=== PATIENT | male | born 1970 | race Caucasian/White ===

== ENCOUNTER 2023-07-05 01:12 | Emergency (ER) | payer BC, SELFPAY ==
[2023-07-05] VITALS (25 sets, daily range): BP systolic 108–148; BP diastolic 56–90; PULSE 48–70; RESP 12–23; TEMP 37; O2SAT 98–100
--- NOTE | ~2023-07-05 | XR_ITS ---
Clinical Indication: Chest pain PA and lateral views of the chest: Comparison: 11/07/2004 Findings: The lungs are clear, without evidence of focal consolidation or pleural effusion. Cardiome diastinal silhouette is within normal limits. Bones and soft tissues are unremarkable. Impression: Normal chest. Reviewed, dictated and finalized at location . Impression: Normal chest.
--- NOTE | ~2023-07-05 | CT_ITS ---
CT of the Abdomen and Pelvis: Indication: Abdominal pain Technique: 2.5 mm axial scans were obtained through the abdomen and pelvis following intravenous adm inistration of 100 cc of Omnipaque 350. Dose reduction technique was used on this scan by utilizing a utomated exposure control and iterative reconstruction technique. The dose-length product (DLP) was 6 80.34 mGy-cm. Findings: Scans through the lung bases are unremarkable. The liver, spleen, pancreas, gallbladder, adrenals and kidneys are within normal limits. No evidence of aortic aneurysm. No lymphadenopathy. No bowel obstruction or bowel wall thickening. There is no evidence to suggest acute appendicitis. Images through the pelvis were performed. Urinary bladder unremarkable. Prostate gland and seminal ve sicles are unremarkable. No ascites. Impression: No significant abnormalities seen. Reviewed, dictated and finalized at [facility]. Impression: No significant abnormalities seen.
--- NOTE | ~2023-07-05 | US_ITS ---
US abdomen limited INDICATION: Right upper quadrant pain PROCEDURE: Realtime right upper abdominal ultrasound. COMPARISON: No prior studies for comparison. FINDINGS: The pancreas is normal without focal mass or pancreatic ductal dilation. Liver echotexture is normal without focal mass or intrahepatic biliary dilatation. There is normal directional flow i n the portal vein. The gallbladder is normal without stones, gallbladder wall thickening or pericholecystic fluid. Comm on bile duct is not definitely visualized. No significant biliary dilatation is identified. No sonogr aphic Samuels's sign. IMPRESSION: 1: Normal limited abdominal ultrasound. Reviewed, dictated and finalized at location B.
--- NOTE | 2023-07-05 01:14 | ECG_ITS ---
Measurements Intervals [place] Rate: 59 P: 55 TX: 174 QRS: 91 QRSD: 94 T: 66 QT: 407 QTc: 404 Interpretive Statements SINUS BRADYCARDIA RIGHT AXIS DEVIATION BASELINE ARTIFACT- I, II, III, AVR, AVL, AVF, V1-V6 BORDERLINE ECG NO PREVIOUS ECG AVAILABLE FOR COMPARISON Electronically Signed On 07-05-2023 6:31:52 CDT by Norris Connor D.O.
[2023-07-05 02:07] LABS: Basophils Percent Auto 0.4 % (0.2-1.2); Eosinophils Absolute Auto 0.4 K/mm3 (0-0.3); Eosinophils Percent Auto 4.9 % (0-4.4); Hematocrit 45.2 % (42.0-52.0); Hemoglobin 15.2 g/dL (14.0-18.0); Immature Granulocyte Absolute 0.02 K/mm3 (0.00-0.031); Immature Granulocyte Percent A 0.3 % (0-0.5); Lymphocytes Absolute Auto 3.08 K/mm3 (0.9-3.2); Lymphocytes Percent Auto 39.4 % (18.3-44.2); Mean Corpuscular HGB Conc 33.6 g/dl (32-36); Mean Corpuscular Hemoglobin 30.5 pg (26-34); Mean Corpuscular Volume 90.6 fl (80-100); Mean Platelet Volume 9.5 fl (7.4-10.4); Monocytes Absolute Auto 0.5 K/mm3 (0.1-0.6); Monocytes Percent Auto 6.7 % (2.6-8.5); Neutrophils Absolute Auto 3.8 K/mm3 (1.3-6.7); Neutrophils Percent Auto 48.3 % (45.5-73.1); Platelet Count Result 181 k/mm3 (150-375); Red Blood Count 4.99 M/mm3 (4.6-6.20); Red Cell Distribution Width 12.1 % (11.5-14.5); White Blood Count 7.8 K/mm3 (4.5-10.0)
[2023-07-05 02:18] LABS: Alanine Aminotransferase 23 U/L (6-50); Albumin Level 4.2 g/dL (3.5-5.1); Alkaline Phosphatase 57 U/L (38-126); Anion Gap 10 mmol/L (8-16); Aspartate Amino Transferase 30 U/L (17-59); Bilirubin,Total 0.5 mg/dL (0.2-1.3); Blood Urea Nitrogen 16 mg/dL (9-20); Calcium 8.7 mg/dL (8.4-10.2); Carbon Dioxide 26 mmol/L (22-30); Chloride 105 mmol/L (98-107); Estimated CRCL calculation 82 ml/min; Estimated Glomerular Filt Rate > 60; Glucose 120 mg/dL (65-110); Lipase 185 U/L (23-300); Potassium 3.6 mmol/L (3.4-5.0); Sodium 141 mmol/L (137-145)
[2023-07-05 02:22] LABS: INR 0.9
[2023-07-05 02:23] LABS: Partial Thromboplastin Time 24.7 SECONDS (22.3-36.8)
[2023-07-05 02:30] LABS: Troponin I < 0.012 ng/mL (0.000-0.034)
[2023-07-05 06:15] LABS: Troponin I 0.014 ng/mL (0.000-0.034)
--- NOTE | 2023-07-05 07:24 | ED.CHESTPAIN ---
HPI - Chest Pain General Chief Complaint: Chest Pain Stated Complaint: chest pain Time Seen by Provider: 07/05/23 06:54 History of Present Illness HPI narrative: 53-year-old male presented the ED for evaluation of right upper quadrant and right-sided chest pain. Patient reports that the symptoms began to worsen around midnight last night. Patient reports he has had [place] food for lunch, yesterday and chicken nuggets for dinner. Patient does feel he has abdominal pain everywhere but worse in the right upper quadrant. Patient reports he did have similar symptoms when he was on a cruise but the symptoms resolved. Patient denies any prior history of gallbladder disease. Patient denies any prior history of abdominal surgeries. Related Data Allergies Allergy/AdvReac Type Severity Reaction Status Date / Time No Known Allergies Allergy Verified 07/05/23 05:47 Review of Systems Review of Systems: All systems reviewed & are unremarkable except as noted in HPI and below Exam Narrative: APPEARANCE: Well appearing, no pain, no distress, well-nourished. HEAD: normocephalic, atraumatic. EYES: PERRLA/EOMI, conjunctivae clear. THROAT: Pharynx clear, no exudate. NECK: Supple. No adenopathy, no masses. RESPIRATORY: Airway patent, respirations nonlabored. Clear to auscultation bilaterally, no rales, rhonchi, wheezing. CARDIOVASCULAR: Regular rate and rhythm without murmurs rubs or gallops. ABDOMINAL: Soft, right upper quadrant and right lower quadrant tenderness to MUSCULOSKELETAL: Moves all extremities. Strength/ROM intact, No edema, No calf tenderness. NEURO: Alert. Cranial nerves II through XII intact. Grossly intact SKIN: Warm, dry. Normal Color Course Course Emergency Course: 53-year-old female presented the ED for evaluation of right upper quadrant pain. Patient is afebrile with leukocytosis and a stable hemoglobin. Patient has no significant abnormalities on his CMP and had negative serial troponins. X-ray showed no acute cardiopulmonary malady. Patient does have reproducible tenderness to his upper quadrant and lower abdomen. Patient has been provided medications for pain control and a CT scan to evaluate for abdominal pathology has been ordered. Patient was treated with 1 L of IV fluids and 1 mg of IV Dilaudid. Patient did feel improved with treatment. CT scan was ordered to evaluate for intra-abdominal pathology and CT scan showed no acute abnormalities. Ultrasound of the right upper quadrant was ordered to evaluate for cholelithiasis and this was negative. Patient and family were updated on the results of the work-up and recommendation for a low-fat diet and follow-up with surgery and primary care physician. They are also encouraged to return the emergency department with any worsening symptoms. All questions and concerns were addressed and they are comfortable with the plan for discharge and close follow-up. Vital Signs Vital signs: Vital Signs Temperature 98.6 F 07/05/23 01:27 Pulse Rate 57 L 07/05/23 01:27 Respiratory Rate 22 H 07/05/23 01:27 Blood Pressure 143/87 H 07/05/23 01:27 Pulse Oximetry 100 07/05/23 01:27 Oxygen Delivery Room Air 07/05/23 01:27 Temperature 98.6 F 07/05/23 01:27 Pulse Rate 70 07/05/23 09:30 Respiratory Rate 23 H 07/05/23 08:47 Blood Pressure 108/56 L 07/05/23 09:01 Pulse Oximetry 100 07/05/23 09:15 Oxygen Delivery Room Air 07/05/23 05:43 MDM - Chest Pain Differential Diagnosis Differential diagnosis: Likely pneumothorax, stable angina, atypical chest pain, chest pain and biliary colic Lab Data Attestation: I reviewed the patient's lab results. 07/05/23 01:26 07/05/23 01:26 Labs: Lab Results 07/05/23 07/05/23 Range/Units 01:26 05:49 WBC 7.8 (4.5-10.0) K/mm3 RBC 4.99 (4.6-6.20) M/mm3 Hgb 15.2 (14.0-18.0) g/dL Hct 45.2 (42.0-52.0) % MCV 90.6 (80-100) fl MCH 30.5 (26-34) pg MCHC
[2023-07-05] MEDS: HYDROmorphone HCL INJ (*CRX) 1 MG/ML SYR IV PUSH (07:31)
[2023-07-05] MEDS: SODIUM CHLORIDE 0.9% IV 1,000 ML 999 ML IV CONT (07:32)
== END 2023-07-05 09:43 | disposition home or self-care (01) ==
PROVIDERS: Emergency Medicine; Emergency Provider Emergency Medicine; PCP Physician Assistant
DX: R10.11 Right upper quadrant pain (principal); R00.1 Bradycardia, unspecified
CPT/HCPCS: 36415; 71046; 74177; 76705; 80053; 83690; 84484; 85025; 85610; 85730; 93005; 96361; 96374; 99284; J1170; J7030; Q9967

== ENCOUNTER 2024-01-22 18:04 | Inpatient (IN) | payer BC, SELFPAY ==
--- NOTE | ~2024-01-22 | US_ITS ---
EXAMINATION: US right upper quadrant DATE: 01/22/2024 19:39 INDICATION: Abnormal liver function tests. TECHNIQUE: Multiple grayscale and Doppler ultrasound images of the abdomen were obtained. COMPARISON: Abdomen ultrasound 07/05/2023, CT abdomen and pelvis 07/05/2023 FINDINGS: The visualized portion of the body of the pancreas is normal. The liver is normal without f ocal lesion. There is normal flow in main portal vein. The gallbladder is normal in size. No gallston es or gallbladder wall thickening. There is no sonographic Samuels sign. The common duct is normal and measures 5 mm. Right kidney is normal. IMPRESSION: 1. Normal right upper quadrant ultrasound. Reviewed, dictated and finalized at location A.
--- NOTE | ~2024-01-22 | XR_ITS ---
EXAMINATION: XR ERCP DATE: 01/24/2024 12:45 CDT INDICATION: ERCP . TECHNIQUE: 5 fluoroscopic images of the right upper quadrant were obtained during ERCP, performed in the fluoroscopy suite. I was not present during the procedure. Fluoroscopy exposure time was 281.4 se conds. Air Kerma 116.08 mGy. DAP 3.57 mGym2. COMPARISON: CT abdomen pelvis 01/22/2024 FINDINGS/IMPRESSION: Fluoroscopic documentation of ERCP. Please refer to the operative note for complete procedural detail s. Reviewed, dictated and finalized at location K.
--- NOTE | ~2024-01-22 | CT_ITS ---
EXAMINATION: CT abdomen pelvis w con DATE: 01/22/2024 20:59 INDICATION: Right abdominal pain. TECHNIQUE: Computed tomography (CT) of the abdomen and pelvis was performed with 100 mL Omnipaque 350 intravenous contrast. Automated exposure control and iterative reconstruction technique were employe d. The dose-length product was 526.93 mGy-cm. COMPARISON: CT abdomen and pelvis 07/05/2023 FINDINGS: The visualized portions of the lung bases demonstrate mild atelectasis. No pleural effusion . The heart size is normal. No pericardial effusion. There is a small sliding hiatal hernia. There is mild intrahepatic biliary duct dilatation. The gallbladder is normal in size. There is a 4 mm stone in the common bile duct. The common duct is mildly dilated and measures 7 mm. The spleen, pancreas, a nd adrenal glands are normal. There are cysts in the kidneys measuring up to 12 mm in the right. Ther e are no dilated loops of bowel. There is diverticulosis of the colon without evidence of diverticuli tis. The appendix is normal. There is an umbilical hernia containing fat. There are no pathologically enlarged lymph nodes. There is no free intraperitoneal fluid. There is prominent fat in right inguin al canal that may be a hernia. There is mild thoracic and lumbar spondylosis. IMPRESSION: 1. 4 mm stone in the common bile duct with mild intrahepatic and extrahepatic biliary duct dilatation . Reviewed, dictated and finalized at location A. IMPRESSION: 1. 4 mm stone in the common bile duct with mild intrahepatic and extrahepatic b iliary duct dilatation.
--- NOTE | 2024-01-22 18:07 | ED.ABDPAIN ---
HPI - Abdominal Pain General Chief Complaint: Abdominal Pain <ARNALDO Preciado Last Filed: 01/22/24 23:00> Stated Complaint: flank pain <ARNALDO Preciado Last Filed: 01/22/24 23:00> Time Seen by Provider: 01/22/24 18:07 <ARNALDO Preciado Last Filed: 01/22/24 23:00> Focused HPI: Patient is a 53 y/o male who presents to the ED with c/o RUQ abdominal pain. Patient reports pain first began last Wednesday. Has been progressively worsening throughout the week. Became worse today which prompted his presentation. Pain worse with movement, worse with eating. Hx of similar pain in the past, thought to be r/t his GB. Had negative US and HIDA scan last year. Tried taking Excedrin and Flexeril today w/o relief. Reports subjective fever today. Denies N/V/D, constipation, dysuria, hematuria, hx kidney stones. GENERAL: Uncomfortable-appearing, well-nourished, and in mild acute distress d/t pain, holding side of abdomen. HEAD: Normocephalic, atraumatic. EYES: Mild scleral icterus. PERRL/EOMI CHEST: Clear to auscultation. ?No respiratory distress. HEART: Tachycardic with regular rhythm.? ABD: Focal tenderness in RUQ and epigastric region. Normoactive BS. NEURO: ?Alert and oriented x3. Patient screened in triage and initial orders placed.? ?Additional care and disposition to be based upon?diagnostic testing and treatment. <ARNALDO Preciado Last Filed: 01/22/24 23:00> Source: patient <ARNALDO Preciado Last Filed: 01/22/24 23:00> Mode of arrival: ambulatory <ARNALDO Preciado Last Filed: 01/22/24 23:00> Limitations: no limitations <ARNALDO Preciado Last Filed: 01/22/24 23:00> Related Data Home Medications: Home Medications Medication Instructions Recorded Confirmed cyclobenzaprine 10 mg tablet 10 mg PO PRN PRN muscle spasms 01/22/24 01/22/24 lisinopril 5 mg tablet 5 mg PO DAILY 01/22/24 01/22/24 pantoprazole 40 mg tablet,delayed 40 mg PO DAILY 01/22/24 01/22/24 release topiramate 50 mg tablet 50 mg PO BID PRN Headache 01/22/24 01/22/24 <Tamica Kraus PA-C - Last Filed: 01/22/24 23:00> Allergies/Adverse Reactions: Allergies Allergy/AdvReac Type Severity Reaction Status Date / Time No Known Allergies Allergy Verified 01/22/24 18:07 <Tamica Kraus PA-C - Last Filed: 01/22/24 23:00> Review of Systems Review of Systems: CONSTITUTIONAL: Reports subjective fevers. CARDIOVASCULAR: Denies chest pain. RESPIRATORY: Denies dyspnea. GASTROINTESTINAL: See HPI. GENITOURINARY: Denies dysuria or hematuria. MUSCULOSKELETAL: Denies back pain, extremity pain, myalgia. <Tamica Kraus PA-C - Last Filed: 01/22/24 23:00> All systems reviewed & are unremarkable except as noted in HPI and below <Tamica Kraus PA-C - Last Filed: 01/22/24 23:00> [facility] Past Medical History Medical History: Medical History Eczema GERD (gastroesophageal reflux disease) History of esophageal stricture HTN (hypertension), benign Migraine Nausea and vomiting in adult Upper abdominal pain <Tamica Kraus PA-C - Last Filed: 01/22/24 23:00> Surgical History Surgical History: Surgical History No history of previous surgery <ARNALDO Preciado Last Filed: 01/22/24 23:00> Family History Family History: Family History Father Heart disease Hypertension Mother Heart disease Hypertension Diabetes mellitus <ARNALDO Preciado Last Filed: 01/22/24 23:00> Social History Social History: Social History Social History: Lifelong nonsmoker. Drinks 1 alcoholic drink per month. No drug use. No history of drug use. Lives at home with his , 5
--- NOTE | 2024-01-22 18:11 | ECG_ITS ---
Measurements Intervals [place] Rate: 108 P: 22 [place]: 180 QRS: 85 QRSD: 94 T: 19 QT: 322 QTc: 432 Interpretive Statements SINUS TACHYCARDIA RIGHT AXIS DEVIATION NONSPECIFIC ST-T WAVE ABNORMALITY- ANTEROLAT/INF LEADS BASELINE ARTIFACT- I, II, III, AVR, AVL, AVF, V1-V2 ABNORMAL ECG COMPARED TO ECG 07/05/2023 01:17:07 [address]IA NOW PRESENT ST-T WAVE ABNORMALITY NOW PRESENT Electronically Signed On 01-22-2024 21:06:24 CDT by Norris Connor D.O.
[2024-01-22 18:12] VITALS: BP 143/78; PULSE 121; RESP 20; TEMP 36.6; O2SAT 100
[2024-01-22 18:29] LABS: Basophils Percent Auto 0.2 % (0.2-1.2); Eosinophils Absolute Auto 0.3 K/mm3 (0-0.3); Eosinophils Percent Auto 2.6 % (0-4.4); Hemoglobin 16.5 g/dL (14.0-18.0); Immature Granulocyte Absolute 0.02 K/mm3 (0.00-0.031); Immature Granulocyte Percent A 0.2 % (0-0.5); Lymphocytes Absolute Auto 1.86 K/mm3 (0.9-3.2); Mean Corpuscular HGB Conc 33.7 g/dl (32-36); Mean Corpuscular Hemoglobin 29.9 pg (26-34); Mean Corpuscular Volume 88.9 fl (80-100); Mean Platelet Volume 9.2 fl (7.4-10.4); Monocytes Absolute Auto 0.8 K/mm3 (0.1-0.6); Monocytes Percent Auto 7.8 % (2.6-8.5); Neutrophils Absolute Auto 7.3 K/mm3 (1.3-6.7); Neutrophils Percent Auto 71.2 % (45.5-73.1); Platelet Count Result 199 k/mm3 (150-375); Red Blood Count 5.51 M/mm3 (4.6-6.20); Red Cell Distribution Width 12.5 % (11.5-14.5); White Blood Count 10.3 K/mm3 (4.5-10.0)
[2024-01-22 18:40] LABS: Alanine Aminotransferase 434 U/L (6-50); Albumin Level 4.5 g/dL (3.5-5.1); Alkaline Phosphatase 212 U/L (38-126); Anion Gap 8 mmol/L (4-12); Aspartate Amino Transferase 250 U/L (17-59); Bilirubin,Total 10.1 mg/dL (0.2-1.3); Blood Urea Nitrogen 12 mg/dL (9-20); Calcium 9.2 mg/dL (8.4-10.2); Carbon Dioxide 26 mmol/L (22-30); Chloride 104 mmol/L (98-107); Estimated CRCL calculation 90 ml/min; Estimated Glomerular Filt Rate > 60; Glucose 101 mg/dL (65-110); Lipase 143 U/L (23-300); Potassium 3.7 mmol/L (3.4-5.0); Sodium 138 mmol/L (137-145)
[2024-01-22 18:41] LABS: Appearance Urine Clear (Clear); Bilirubin Urine 3+ (Negative); Blood Urine Negative (Negative); Color Urine Dark Yellow (Yellow); Glucose Urine UA Negative (Negative); Ketones Urine Negative (Negative); Leukocyte Esterase Ur Negative LEU/UL (Negative); Nitrate Urine Negative (Negative); Protein Urine Negative (Negative); Specific Grav Ur 1.017 (1.001-1.035); pH Urine 6.5 (5.0-9.0)
[2024-01-22 18:43] LABS: Add Urine Microscopic? NO
[2024-01-22 18:51] LABS: Troponin I < 0.012 ng/mL (0.000-0.034)
[2024-01-22 19:56] VITALS: BP 130/72; PULSE 112; O2SAT 100
[2024-01-22] MEDS: MORPHINE SULFATE (*CRX) 4 MG/ML INJ IV PUSH (21:23)
[2024-01-22] MEDS: ONDANSETRON INJ 4 MG/2 ML VIAL IV PUSH (21:23)
[2024-01-22] MEDS: SODIUM CHLORIDE 0.9% IV 1,000 ML 999 ML IV CONT (21:23)
[2024-01-22 22:41] VITALS: BP 118/72; PULSE 90; RESP 20; O2SAT 100
[2024-01-22] MEDS: HYDROmorphone HCL INJ (*CRX) 1 MG/ML SYR 0.5 MG IV PUSH (22:41)
--- NOTE | 2024-01-22 23:22 | ADMGEN ---
This patient, Abiel Ramirez, was admitted to Medical Room 252-01. Patient/family oriented to hospital policies and general routines including ID bracelet, bed and alarms, visiting hours, pain management, procedures, bathroom and other care routines, personal items, smoking policy, room service/diet, and visiting hours. Information on how to activate the Rapid Response Team has been discussed. Patient/Family are encouraged to report perceived risks to care and to ask questions if they do not understand what they are told or what they should do. Report received from ROZINA Matthew in ER.
[2024-01-22 23:37] VITALS: BP 111/61; PULSE 91; RESP 16; TEMP 37.1; O2SAT 99
[2024-01-22 23:38] VITALS: BMI 30.6
[2024-01-23] MEDS: SODIUM CHLORIDE 0.9% IV 1,000 ML 100 ML IV CONT ×3 (00:04→20:45)
[2024-01-23] MEDS: HYDROmorphone HCL INJ (*CRX) 1 MG/ML SYR 0.5 MG IV PUSH ×2 (02:36→20:42)
[2024-01-23 03:43] VITALS: BP 119/71; PULSE 84; RESP 16; TEMP 36.5; O2SAT 97
[2024-01-23 06:48] VITALS: BP 114/69; PULSE 85; RESP 16; TEMP 36.6; O2SAT 100
--- NOTE | 2024-01-23 07:44 | PM.IMHP ---
H&P: HPI History of Present Illness Date/Time: 01/23/24 07:44 Chief Complaint: Abdominal pain Narrative: 53yo male with GERD, HTN and migraines here for abdominal pain. Patient began to have abdominal pain after eating last fall. He has had a total of about 6 episodes and normally this resolves on its own after an hour. He had a more severe episode on July 05 resulting in the ER visit here in [place]. Right upper quadrant ultrasound and CT of the abdomen and pelvis were unrevealing. No gallstones or evidence of acute cholecystitis. He followed with GI and had what sounds like a HIDA scan in August which was normal. He continued to have intermittent abdominal pain after eating. There is a plan for an EGD and he has not had this yet. He has never had a colonoscopy. He did have an EGD 10+ years ago for food sticking sensation was found to have what sounds like esophageal stricture which was dilated. He has a long-standing history of GERD and takes pantoprazole for this. He has not had any further food sticking sensation but does have to be careful with hard foods such as steak. Patient was doing well up until about a week ago when he had another episode of epigastric pain radiating to the right flank about 1 hour after eating. This felt very similar to prior episodes. He did develop nausea and vomiting on that day. He continued to have episodes of abdominal pain after eating over the past week. No further nausea and vomiting. His symptoms were progressively worsening and becoming more severe. His family noted that the patient had turned jaundiced. He does have eczema and has not noted increasing pruritus. He felt warm yesterday but no fevers by home thermometer. He took Advil and muscle relaxants with some benefit. His symptoms were initially resolving between meals but then the pain became more constant. He has noted that his urine has turned bright yellow. No dysuria or hematuria but is having difficulty voiding. He has no history of BPH. He has never had this before. He denies any symptoms of lower urinary obstruction such as dribbling. He was having constipation but his last bowel movement was yesterday. He did have dizziness and shortness of breath on the day of admission related to the pleuritic pain in the right upper quadrant. Because of the worsening symptoms, he presented to the emergency room for evaluation. In the ED, was hemodynamically stable. He was tachycardic at 121. Lactic acid was normal. EKG shows sinus tachycardia rate of [address]-T wave changes. He denies chest pain, palpitations, cough and shortness of breath. White count was 10 K, Tbili 10, AST 250, ALT 434 and AlkPhos 212. Lipase was normal. Troponin was negative. Urinalysis was clear except for 3+ bilirubin. Right upper quadrant ultrasound was normal without gallstones, gallbladder wall thickening or dilated common bile duct. CT of the abdomen and pelvis showed mild atelectasis, mild intrahepatic biliary dilatation and a 4 mm stone in the common bile duct. The common bile duct was mildly dilated at 7 mm. Renal cysts noted as well. He was treated with narcotics, Zofran and IV fluids. He was admitted for further care. Review of Systems Review of Systems: All systems reviewed & are unremarkable except as noted in HPI and below PMFSH Past Medical History Medical History (Updated 01/23/24 @ 08:45 by Aries Baltazar MD) Eczema GERD (gastroesophageal reflux disease) History of esophageal stricture HTN (hypertension), benign Migraine Surgical History Surgical History (Updated 01/23/24 @ 08:42 by Aries Baltazar MD) No history of previous surgery Family History Family History (Updated 01/22/24 @ 23:31 by Yani Cool RN) Father Heart disease Hypertension Mother Heart disease Hypertension Diabetes mellitus Social History Social History (Updated 01/23/24 @ 08:43 by Aries Baltazar
[2024-01-23 08:25] VITALS: O2SAT 98
[2024-01-23 08:38] LABS: Hematocrit 48.6 % (42.0-52.0); Hemoglobin 15.8 g/dL (14.0-18.0); Mean Corpuscular HGB Conc 32.5 g/dl (32-36); Mean Corpuscular Hemoglobin 29.8 pg (26-34); Mean Corpuscular Volume 91.7 fl (80-100); Mean Platelet Volume 9.5 fl (7.4-10.4); Platelet Count Result 192 k/mm3 (150-375); Red Cell Distribution Width 12.8 % (11.5-14.5); White Blood Count 7.1 K/mm3 (4.5-10.0)
[2024-01-23 08:48] LABS: Alanine Aminotransferase 373 U/L (6-50); Albumin Level 4.2 g/dL (3.5-5.1); Alkaline Phosphatase 229 U/L (38-126); Anion Gap 7 mmol/L (4-12); Aspartate Amino Transferase 202 U/L (17-59); Bilirubin,Total 11.3 mg/dL (0.2-1.3); Blood Urea Nitrogen 9 mg/dL (9-20); Calcium 8.9 mg/dL (8.4-10.2); Carbon Dioxide 23 mmol/L (22-30); Chloride 107 mmol/L (98-107); Estimated CRCL calculation 90 ml/min; Estimated Glomerular Filt Rate > 60; Glucose 93 mg/dL (65-110); Potassium 4.2 mmol/L (3.4-5.0); Sodium 137 mmol/L (137-145)
--- NOTE | 2024-01-23 14:20 | WPDGICN ---
Assessment and Plan Assessment and plan (1) Choledocholithiasis: Code(s): K80.50 - Calculus of bile duct without cholangitis or cholecystitis without obstruction Status: Acute Assessment and Plan: stone in bile duct causing obstructive jaundice, he needs ERCP- will do tomorrow he understood benefits and risk including pancreatitis, bleeding, etc. He is ok to proceed surgery also to see patient, will need interval lap jonathan given recurrent biliary colic. (2) Obstructive jaundice: Code(s): K83.1 - Obstruction of bile duct Status: Acute Assessment and Plan: will treat tomorrow with ercp (3) Upper abdominal pain: Code(s): R10.10 - Upper abdominal pain, unspecified Status: Acute (4) GERD (gastroesophageal reflux disease): Code(s): K21.9 - Gastro-esophageal reflux disease without esophagitis Status: Acute Assessment and Plan: on ppi (5) Nausea and vomiting in adult: Code(s): R11.2 - Nausea with vomiting, unspecified Status: Acute GI Consult Note Consult date/time: 01/23/24 14:20 HPI: Abiel Ramirez is a 53 year old male here with intermittent pain in upper abdomen since May initially probably every 4-5 weeks that will last few 1-2 hour after eating fatty meals but will go away, he changes his diet but still has been experimenting abdominal discomfort. Actually he was in the ER here in [place] on July 05, at that time right upper quadrant ultrasound and CT of the abdomen and pelvis were unrevealing.? No gallstones or evidence of acute cholecystitis.? This time with more severe pain in upper abdomen for 5-6 days, initially had nausea and vomiting, pain did not go away and got more severe, also noted dark urine with icteric sclerae. Blood work showed bili 11 (last year normal liver enzymes), CT scan this time 4 mm stone in CBD, normal pancreas and GB, ?mild intrahepatic and extrahepatic biliary duct dilatation. Had EGD more than 10 years ago because GERD, now using ppi. He does not drink alcohol, no previous pancreatitis, no h/o gastric surgery. Lipase normal. Review of Systems Constitutional: Constitutional: Denies chills Eyes: Eyes: Denies blurry vision ENT: Reports Normal hearing present Cardiovascular: Cardiovascular: Denies chest pain Respiratory: Respiratory: Denies cough Gastrointestinal: Gastrointestinal: Reports abdominal pain, Reports nausea and Reports vomiting Genitourinary: Genitourinary: Denies dysuria Musculoskeletal: Musculoskeletal: Denies neck pain Integumentary/Breasts: Skin/Breast: Denies rash Neurologic: Denies Abnormal speech present Psychiatric: Psychiatric: Denies behavioral changes [facility] Past Medical History Medical History (Updated 01/23/24 @ 14:27 by Baldo Morales MD) Eczema GERD (gastroesophageal reflux disease) History of esophageal stricture HTN (hypertension), benign Migraine Nausea and vomiting in adult Upper abdominal pain Surgical History Surgical History (Updated 01/23/24 @ 08:42 by Aries Baltazar MD) No history of previous surgery Family History Family History (Updated 01/22/24 @ 23:31 by Yani Cool RN) Father Heart disease Hypertension Mother Heart disease Hypertension Diabetes mellitus Social History Social History (Updated 01/23/24 @ 08:43 by Aries Baltazar MD) Social History: Lifelong nonsmoker. Drinks 1 alcoholic drink per month. No drug use. No history of drug use. Lives at home with his , 5 children. Does have birds and fish at home. Full code. He nominates his to be the individual who would make medical decisions for him if he is unable. Smoking status: Never smoker Alcohol intake: never Substance use: never Do You Feel Safe in your Home?: Yes Lack of Transportation: No Lack of Food: Never True Current Housing: I Have Housing Concerned About Future Housing: No Difficulty Paying Gas/[place]
[2024-01-23 15:26] VITALS: BP 107/59; PULSE 72; RESP 16; TEMP 36.6; O2SAT 100
--- NOTE | 2024-01-23 16:11 | PM.CNGS ---
Assessment and Plan Assessment and plan (1) Jaundice: Code(s): R17 - Unspecified jaundice Status: Acute Assessment and Plan: Significantly jaundiced with TBili 11 today, up from admission. With symptoms of postprandial epigastric pain for months, could well be obstructing gallstone in CBD as suggested on CT scan. Unusual situation though, as CBD only 7mm, no stones in GB now or last June. Will get hepatitis panel today. Agree ERCP indicated with imaging findings. (2) Choledocholithiasis: Code(s): K80.50 - Calculus of bile duct without cholangitis or cholecystitis without obstruction Status: Acute Assessment and Plan: as noted on CT scan (3) Upper abdominal pain: Code(s): R10.10 - Upper abdominal pain, unspecified Status: Acute Assessment and Plan: has been occurring 6-7 months. No gallstones by imaging last fall and again this admission. Could be acalculous cholecystitis but wouldn't expect CBD stone if that were case. Will see findings on ERCP tomorrow. If stone is in CBD, patient will need cholecystectomy despite negative imaging. (4) HTN (hypertension), benign: Code(s): I10 - Essential (primary) hypertension Status: Chronic History of Present Illness Consult details Consult date: 01/23/24 Reason for consult: abdominal pain Requesting physician: Tamica Kraus PA-C Narrative: Patient is a 53 yo man with 6-7 month hx of postprandial epigastric pain. Had bad episode this 07/05/23 and came to ED. U/S and CT abd/pelvis both neg for gallstones or cholecystitis. Had HIDA last August (reportedly, no report in EMR) which was normal. He came to ER yesterday withepigastric pain again but also jaundice--TBili noted to be 10.1 with all LFT's elevated as well. RUQ U/S was neg for gallstones or signs cholecystitis. CT scan abd/pelvis was also neg for gallstones and signs cholecystitis. CT did show a 4mm stone in CBD which was dilated to 7mm. Dr. Booth has seen patient and plans ERCP tomorrow. Patient is seen now regarding CBD stones and jaundice, possible need eventually for cholecystectomy. Review of Systems Review of Systems: All systems reviewed & are unremarkable except as noted in HPI and below (HPI and those noted below) Constitutional: Constitutional: Denies chills and Denies fever(s) Cardiovascular: Cardiovascular: Denies chest pain, Denies diaphoresis, Denies dyspnea and Denies paroxysmal nocturnal dyspnea Respiratory: Respiratory: Denies chest congestion, Denies cough and Denies dyspnea Integumentary/Breasts: Skin/Breast: Denies lesions and Denies rash PMFSH Past Medical History Medical History Eczema GERD (gastroesophageal reflux disease) History of esophageal stricture HTN (hypertension), benign Migraine Nausea and vomiting in adult Upper abdominal pain Surgical History Surgical History No history of previous surgery Family History Family History Father Heart disease Hypertension Mother Heart disease Hypertension Diabetes mellitus Social History Social History Social History: Lifelong nonsmoker. Drinks 1 alcoholic drink per month. No drug use. No history of drug use. Lives at home with his , 5 children. Does have birds and fish at home. Full code. He nominates his to be the individual who would make medical decisions for him if he is unable. Smoking status: Never smoker Alcohol intake: never Substance use: never Do You Feel Safe in your Home?: Yes Lack of Transportation: No Lack of Food: Never True Current Housing: I Have Housing Concerned About Future Housing: No Difficulty Paying Gas/Electric Bills: Decline to Answer Difficulty Paying for Meds: No Currently Unemployed: No
[2024-01-23] MEDS: MORPHINE SULFATE (*CRX) 4 MG/ML INJ IV PUSH (17:15)
[2024-01-23 19:39] LABS: Hepatitis B Surface Antigen Negative (Negative)
[2024-01-23 19:44] LABS: HAV RESULT Negative (Negative); Hepatitis B Core IgM Result Negative (Negative)
[2024-01-23 19:56] LABS: Hepatitis C Virus Antibody Negative (Negative)
--- NOTE | 2024-01-23 21:09 | PC.NURSE ---
Bladder scan ordered by Dr Baltazar, results pre-void of 595ml, post void >400ml. Order received to place evangelista catheter, pt educated on all risks associated with urinary retention and necessity for indwelling catheter, pt refusing catheter placement at this time. Dr Baltazar notified at this time, no further orders.
[2024-01-23 21:19] VITALS: BP 141/89; PULSE 96; RESP 18; TEMP 36.2; O2SAT 100
[2024-01-24] VITALS (9 sets, daily range): BP systolic 101–138; BP diastolic 59–91; PULSE 68–90; RESP 14–25; TEMP 36.1–36.9; O2SAT 97–100
[2024-01-24 05:47] LABS: Basophils Percent Auto 0.6 % (0.2-1.2); Eosinophils Absolute Auto 0.4 K/mm3 (0-0.3); Eosinophils Percent Auto 7.3 % (0-4.4); Hematocrit 42.5 % (42.0-52.0); Immature Granulocyte Absolute 0.01 K/mm3 (0.00-0.031); Immature Granulocyte Percent A 0.2 % (0-0.5); Lymphocytes Percent Auto 30.9 % (18.3-44.2); Mean Corpuscular HGB Conc 32.9 g/dl (32-36); Mean Corpuscular Hemoglobin 30.1 pg (26-34); Mean Corpuscular Volume 91.4 fl (80-100); Mean Platelet Volume 9.6 fl (7.4-10.4); Monocytes Absolute Auto 0.6 K/mm3 (0.1-0.6); Monocytes Percent Auto 11.8 % (2.6-8.5); Neutrophils Absolute Auto 2.6 K/mm3 (1.3-6.7); Neutrophils Percent Auto 49.2 % (45.5-73.1); Platelet Count Result 174 k/mm3 (150-375); Red Blood Count 4.65 M/mm3 (4.6-6.20); Red Cell Distribution Width 12.7 % (11.5-14.5); White Blood Count 5.2 K/mm3 (4.5-10.0)
[2024-01-24 06:00] LABS: Alanine Aminotransferase 315 U/L (6-50); Albumin Level 3.5 g/dL (3.5-5.1); Alkaline Phosphatase 194 U/L (38-126); Anion Gap 7 mmol/L (4-12); Aspartate Amino Transferase 169 U/L (17-59); Blood Urea Nitrogen 9 mg/dL (9-20); Calcium 8.3 mg/dL (8.4-10.2); Carbon Dioxide 21 mmol/L (22-30); Chloride 108 mmol/L (98-107); Estimated CRCL calculation 99 ml/min; Estimated Glomerular Filt Rate > 60; Glucose 90 mg/dL (65-110); Sodium 136 mmol/L (137-145)
[2024-01-24] MEDS: SODIUM CHLORIDE 0.9% IV 1,000 ML 100 ML IV CONT ×2 (08:08→20:38)
[2024-01-24] MEDS: PANTOPRAZOLE 40 MG TABLET PO (08:08)
--- NOTE | 2024-01-24 12:01 | PC.NURSE ---
Pt. down to GI lab via wheelchair for ERCP.
[2024-01-24] MEDS: LACTATED RINGERS 1,000 ML 150 ML IV CONT (12:28)
--- NOTE | 2024-01-24 12:44 | WPDANESEPPF ---
Anes - Initial Pre Proc Eval Procedure: Operation Date: 01/24/24 16:00 Proposed Procedures p Endoscopic Retro Cholangiopancreatogram - Baldo Morales MD Date/Time: 01/24/24 12:44 Surgeon: Aliya Cabral DO Pre Op Diagnosis: Choledocholithiasis,Obstructive Jaundice Patient Data Age: 53 Gender: M Height: 1.8 m Weight: 99.6 kg Last Vital Signs Temp 97 F L 01/24/24 12:22 Pulse 70 01/24/24 12:22 Resp 14 01/24/24 12:22 BP 120/66 01/24/24 12:22 Pulse Ox 98 01/24/24 12:22 O2 Del Method Room Air 01/24/24 12:22 Allergies Allergy/AdvReac Type Severity Reaction Status Date / Time No Known Allergies Allergy Verified 01/24/24 12:20 Home Medications Medication Instructions Recorded Confirmed Type cyclobenzaprine 10 mg tablet 10 mg PO PRN PRN muscle spasms 01/22/24 01/22/24 History lisinopril 5 mg tablet 5 mg PO DAILY 01/22/24 01/22/24 History pantoprazole 40 mg tablet,delayed 40 mg PO DAILY 01/22/24 01/22/24 History release topiramate 50 mg tablet 50 mg PO BID PRN Headache 01/22/24 01/22/24 History Laboratory Tests 01/23/24 01/24/24 18:47 05:24 WBC 5.2 K/mm3 (4.5-10.0) RBC 4.65 M/mm3 (4.6-6.20) Hgb 14.0 g/dL (14.0-18.0) Hct 42.5 % (42.0-52.0) MCV 91.4 fl (80-100) MCH 30.1 pg (26-34) MCHC 32.9 g/dl (32-36) RDW 12.7 % (11.5-14.5) Plt Count 174 k/mm3 (150-375) MPV 9.6 fl (7.4-10.4) Immature Gran % (Auto) 0.2 % (0-0.5) Neut % (Auto) 49.2 % (45.5-73.1) Lymph % (Auto) 30.9 % (18.3-44.2) [place] % (Auto) 11.8 H % (2.6-8.5) Eos % (Auto) 7.3 H % (0-4.4) Baso % (Auto) 0.6 % (0.2-1.2) Lymph # (Auto) 1.60 K/mm3 (0.9-3.2) [place] # (Auto) 0.6 K/mm3 (0.1-0.6) Eos # (Auto) 0.4 H K/mm3 (0-0.3) Baso # (Auto) 0.0 K/mm3 (0.0-0.1) Abs Immat Gran (auto) 0.01 K/mm3 (0.00-0.031) Absolute Neuts (auto) 2.6 K/mm3 (1.3-6.7) Absolute Nucleated RBC 0.000 K/mm3 (0.0-0.012) Nucleated RBC % 0.0 % (0.0-0.2) Sodium 136 L mmol/L (137-145) Potassium 4.0 mmol/L (3.4-5.0) Chloride 108 H mmol/L (98-107) Carbon Dioxide 21 L mmol/L (22-30) Anion Gap 7 L mmol/L (4-12) BUN 9 mg/dL (9-20) Creatinine 0.90 mg/dL (0.7-1.3) Estim Creat Clear Calc 99 ml/min Estimated GFR > 60 (59 - ) Glucose 90 mg/dL (65-110) Calcium 8.3 L mg/dL (8.4-10.2) Total Bilirubin 9.0 H mg/dL (0.2-1.3) AST 169 H U/L (17-59) ALT 315 H U/L (6-50) Alkaline Phosphatase 194 H U/L (38-126) Total Protein 6.0 L g/dL (6.3-8.2) Albumin 3.5 g/dL (3.5-5.1) Hepatitis A IgM Ab Negative (Negative) Hep Bs Antigen Negative (Negative) Hep B Core IgM Ab Negative (Negative) Hepatitis C Ab Screen Negative (Negative) Patient hx anesthesia problems: none Family hx anesthesia problems: none Results Review: All pre-operative results and documents have been reviewed as part of the pre-operative evaluation. [facility] Past Medical History Medical History Eczema GERD (gastroesophageal reflux disease) History of esophageal stricture HTN (hypertension), benign Migraine Nausea and vomiting in adult Upper abdominal pain Surgical History Surgical History No history of previous surgery Family History Family History Father Heart disease Hypertension Mother Heart disease Hypertension Diabetes mellitus Social History Social History Social History: Lifelong nonsmoker. Drinks 1 alcoholic drink per month. No drug use. No history of drug use
[2024-01-24] MEDS: INDOMETHACIN 50 MG SUPP.RECT RECTAL (13:01)
--- NOTE | 2024-01-24 14:47 | PM.PNGS ---
Progress Note: A&P Assessment and Plan (1) Chronic cholecystitis: Code(s): K81.1 - Chronic cholecystitis Status: Chronic Assessment and Plan: If a stone is found in the common bile duct, it is unlikely to have come from anywhere but the gallbladder. His symptoms are quite consistent with chronic cholecystitis. Imaging has not shown gallstones and HIDA scan done at [facility] was reportedly negative last August. Even if no stones are found, patient's symptoms are becoming more frequent and more painful. Plan is for laparoscopic cholecystectomy whether that be done this admission or at a later admission. I discussed the procedure in detail with the patient while his was on his cell phone listening. I answered all their questions. We will see what the results are from the ERCP and his condition the day after procedure. If improving, could go ahead with laparoscopic cholecystectomy on Wednesday. (2) Choledocholithiasis: Code(s): K80.50 - Calculus of bile duct without cholangitis or cholecystitis without obstruction Status: Acute Assessment and Plan: 4 mm stone noted common bile duct on CT scan. ERCP today. (3) Jaundice: Code(s): R17 - Unspecified jaundice Status: Acute Assessment and Plan: Bilirubin down to 9 and LFTs decreasing as well. Subjective Subjective Date/Time Seen: 01/24/24 07:27 Patient reports: no new complaints, still having pain (Epigastric and right upper quadrant, after eating any food.) and afebrile Interval history: Patient again relates this morning that his right upper quadrant pain has been coming on for a long time. It generally comes off and on after eating. He particularly remembers this occurring after having a ribeye steak. It has gotten worse such that now he has pain after eating almost anything, not just fatty foods. Plans are to have ERCP today. Review of Systems Review of Systems: All systems reviewed & are unremarkable except as noted in HPI and below (HPI) Exam Const: General: cooperative, comfortable, no acute distress, alert, awake and well nourished Orientation/consciousness: patient oriented x3 GI: Inspection: no abdominal wall ecchymosis, no edema, non-distended and no visible herniation GI Palp: Yes Soft to palpation, Yes Tenderness to palpation present (GI) (Mild right upper quadrant), No Guarding due to palpation present (GI), No Hernia present, No Palpable mass present and No Rebound tenderness present Auscultation: normal bowel sounds Neuro: General: patient oriented x3 and no focal motor deficits Extrem: General: no calf tenderness and no edema Psych: Affect: normal affect Insight: Good insight present (Psych) Judgement: Good judgement present (Psych) Objective Data Vital Signs Vital Signs: Vital Signs - 24 hr 01/23/24 15:26 01/23/24 21:19 01/24/24 05:37 Temperature 36.6 C 36.2 C L 36.2 C L Pulse Rate 72 96 70 Respiratory Rate 16 18 18 Blood Pressure 107/59 L 141/89 H 114/59 L Pulse Oximetry 100 100 98 Oxygen Delivery Oxygen Flow Rate 01/24/24 08:00 01/24/24 12:22 01/24/24 14:08 Temperature 36.1 C L 36.4 C Pulse Rate 70 85 Respiratory Rate 14 17 Blood Pressure 120/66 101/66 Pulse Oximetry 98 99 Oxygen Delivery Room Air Room Air Simple Face Mask Oxygen Flow Rate 6 01/24/24 14:18 01/24/24 14:28 01/24/24 14:38 Temperature Pulse Rate 75 82 80 Respiratory Rate 17 18 15 Blood Pressure 110/66 124/85 128/80 Pulse Oximetry 99 98 100 Oxygen Delivery Simple Face Mask Room Air Room Air Oxygen Flow Rate 6 01/24/24 14:45 Temperature Pulse Rate 77 Respiratory Rate 25 H Blood Pressure 138/91 H Pulse Oximetry 100 Oxygen Delivery Room Air Oxygen Flow Rate Intake/Output Intake/Output: Intake & Output 01/21/24 01/22/24 01/23/24 01/24/24 23:59 23:59 23:59 23:59 Intake Total 2510 3020 Output Total 1950 Balance 2510 1070 Meds/Results M
--- NOTE | 2024-01-24 16:54 | PM.IMPN ---
Progress Note: A&P Assessment and Plan (1) Choledocholithiasis: Code(s): K80.50 - Calculus of bile duct without cholangitis or cholecystitis without obstruction Status: Acute Assessment and Plan: Patient with obstructive jaundice due to choledocholithiasis. LFTs elevated with TBili to 11 CT scan showing a 4mm stone in the CBD with mild biliary duct dilatation. GI consulted and ERCP today performed with removal of singel stone in the distal CBD. No other filling defects. He appears to have tolerated the procedure well. Plan for lap choly per GenSurg Follow labs to show improvement. (2) Obstructive jaundice: Code(s): K83.1 - Obstruction of bile duct Status: Acute Assessment and Plan: As above (3) Urine retention: Code(s): R33.9 - Retention of urine, unspecified Status: Acute Assessment and Plan: Patient noted to have evidence of urine retention yesterday and by bladder scan Snell ordered but patient refused. He was able to void overnight and today Bladder feels less distended. Follow (4) HTN (hypertension), benign: Code(s): I10 - Essential (primary) hypertension Status: Chronic Assessment and Plan: Patient's blood pressure was reviewed on 01/23 Blood pressure remains well controlled. Will continue to hold lisinopril (5) GERD (gastroesophageal reflux disease): Code(s): K21.9 - Gastro-esophageal reflux disease without esophagitis Status: Acute Assessment and Plan: Stable. Continue PPI. Plan SCDs for DVT prophylaxis Code status - full Subjective Date/time seen: 01/24/24 16:54 Interval history: 53yo male with GERD, HTN and migraines here for abdominal pain.? Back from the ERCP. Feels mildly intoxicated but othewise no complaints. No problems overnight. Noted to have urine retention last night but refused Snell. Voiding well overnight and does not feel bladder distended. No BMs but passing flatus. No Cp or SOB. no n/v. Exam Narrative: AF 97.6 132/79 68 16 100% ra Gen - NARD Chest - CTA bilaterally. nml RR CV - RRR S1/S2 Abd - soft, NT/ND, +BS Ext - no pedal edema Psych - normal mood and affect Skin - jaundiced Objective Data Vital Signs Vital Signs: Vital Signs - 24 hr 01/23/24 21:19 01/24/24 05:37 01/24/24 08:00 Temperature 97.2 F L 97.2 F L Pulse Rate 96 70 Respiratory Rate 18 18 Blood Pressure 141/89 H 114/59 L Pulse Oximetry 100 98 Oxygen Delivery Room Air Oxygen Flow Rate 01/24/24 12:22 01/24/24 14:08 01/24/24 14:18 Temperature 97 F L 97.6 F Pulse Rate 70 85 75 Respiratory Rate 14 17 17 Blood Pressure 120/66 101/66 110/66 Pulse Oximetry 98 99 99 Oxygen Delivery Room Air Simple Face Mask Simple Face Mask Oxygen Flow Rate 6 6 01/24/24 14:28 01/24/24 14:38 01/24/24 14:48 Temperature Pulse Rate 82 80 77 Respiratory Rate 18 15 25 H Blood Pressure 124/85 128/80 138/91 H Pulse Oximetry 98 100 100 Oxygen Delivery Room Air Room Air Room Air Oxygen Flow Rate 01/24/24 14:58 Temperature Pulse Rate 68 Respiratory Rate 16 Blood Pressure 132/79 Pulse Oximetry 100 Oxygen Delivery Room Air Oxygen Flow Rate Intake/Output Intake/Output: Intake & Output 01/21/24 01/22/24 01/23/24 01/24/24 23:59 23:59 23:59 23:59 Intake Total 2510 3408.3 Output Total 1950 Balance 2510 1458.3 Meds/Results Medications: Active Medications Generic Name Dose Route Start Last Admin Trade Name Freq PRN Reason Stop Dose Admin Hydromorphone HCl 0.5 mg 01/22/24 22:18 01/23/24 20:42 Hydromorphone Hcl Inj (*Crx) 1 Mg/Ml Syr IV PUSH 0.5 mg Q3H PRN Administration Pain Rated 7-10 Sodium Chloride 1,000 mls @ 100 mls/hr 01/22/24 22:20 01/24/24 15:52 Normal Saline Iv IV CONT 100 mls/hr .Q10H REHAN Infusion Morphine Sulfate 4 mg 01/22/24 22:18 01/23/24 17:15 Morphine Sulfate (*Crx) 4 Mg/Ml Inj IV PUSH 4 mg Q2
[2024-01-25 05:01] VITALS: BP 130/77; PULSE 75; RESP 16; TEMP 36.6; O2SAT 100
[2024-01-25 05:52] LABS: Alanine Aminotransferase 460 U/L (6-50); Alkaline Phosphatase 211 U/L (38-126); Anion Gap 7 mmol/L (4-12); Aspartate Amino Transferase 328 U/L (17-59); Bilirubin,Total 7.5 mg/dL (0.2-1.3); Blood Urea Nitrogen 9 mg/dL (9-20); Calcium 8.7 mg/dL (8.4-10.2); Carbon Dioxide 23 mmol/L (22-30); Chloride 109 mmol/L (98-107); Estimated CRCL calculation 111 ml/min; Estimated Glomerular Filt Rate > 60; Glucose 117 mg/dL (65-110); Potassium 3.8 mmol/L (3.4-5.0); Sodium 139 mmol/L (137-145)
[2024-01-25] MEDS: SODIUM CHLORIDE 0.9% IV 1,000 ML 100 ML IV CONT (05:52)
--- NOTE | 2024-01-25 07:40 | WPDANESPN ---
Anes - Prog Note Post-Op Date/Time: 01/25/24 07:40 Cardiovascular status: normal Respiratory status: normal Airway patency: baseline Mental status: baseline Post-Op hydration status: normal Vital Signs: Last Vital Signs Temp 97.9 F 01/25/24 05:01 Pulse 75 01/25/24 05:01 Resp 16 01/25/24 05:01 BP 130/77 01/25/24 05:01 Pulse Ox 100 01/25/24 05:01 O2 Del Method Room Air 01/24/24 20:00 O2 Flow Rate 6 01/24/24 14:18 Pain Score (VAS): 0 I/O: Intake & Output 01/24/24 01/24/24 01/25/24 15:59 23:59 07:59 Intake Total 1388.3 476.7 1473.3 Output Total 700 1850 1400 Balance 688.3 -1373.3 73.3 Laboratory Tests 01/24/24 05:24 01/25/24 05:32 01/25/24 05:32 Sodium 139 Potassium 3.8 Chloride 109 H Carbon Dioxide 23 Anion Gap 7 L BUN 9 Creatinine 0.80 Estim Creat Clear Calc 111 Estimated GFR > 60 Glucose 117 H Calcium 8.7 Total Bilirubin 7.5 H AST 328 H ALT 460 H Alkaline Phosphatase 211 H Total Protein 8.0 Albumin 4.0 Post-procedural complaints: none Patient Feedback: Patient satisfied with anesthetic care.
[2024-01-25] MEDS: PANTOPRAZOLE 40 MG TABLET PO (08:34)
[2024-01-25] MEDS: PHENOL/SOD PHENO SPRAY CHERRY (*BKC) 1 SPRAY MUCOUS MEM (13:37)
[2024-01-25] MEDS: HYDROmorphone HCL INJ (*CRX) 1 MG/ML SYR 0.5 MG IV PUSH ×2 (13:50→22:43)
--- NOTE | 2024-01-25 14:17 | WPDGIPROGNO ---
Progress Note: A&P Assessment and Plan (1) Choledocholithiasis: Code(s): K80.50 - Calculus of bile duct without cholangitis or cholecystitis without obstruction Status: Acute Assessment and Plan: treated with ercp and removed stone bili high but trending down left PD stent- get KUB in 3 weeks and if stent still in position then will schedule EGD to remove (2) Obstructive jaundice: Code(s): K83.1 - Obstruction of bile duct Status: Acute Assessment and Plan: treated with ercp probably lap jonathan tomorrow (3) Nausea and vomiting in adult: Code(s): R11.2 - Nausea with vomiting, unspecified Status: Acute Assessment and Plan: resolved (4) Upper abdominal pain: Code(s): R10.10 - Upper abdominal pain, unspecified Status: Acute (5) Chronic cholecystitis: Code(s): K81.1 - Chronic cholecystitis Status: Chronic Subjective Date/time seen: 01/25/24 14:17 Interval history: still some abdominal discomfort after eating ERCP yesterday with PD stent (normal pancreatic duct but used stent to prevent pancreatitis), removed bile duct stone Review of Systems Review of Systems: All systems reviewed & are unremarkable except as noted in HPI and below Exam Const: General: comfortable and no acute distress HENMT: Face/Nose/Sinus: Normal nares present Eyes: General: appearance normal, both eyes and all related structures Neck: Neck: supple Resp: Auscultation: clear to auscultation bilaterally Cardio: Rate: regular rate Rhythm: regular rhythm GI: Inspection: non-distended GI Palp: Yes Soft to palpation and Yes Tenderness to palpation present (GI) (mild ttp, no rebound) Auscultation: normal bowel sounds Skin: General skin exam: normal color Neuro: Speech: normal speech Motor exam (neuro): 5/5 motor strength present throughout Extrem: General: normal to inspection Psych: Mental Status: mental status grossly normal Objective Data Vital Signs Vital Signs: Vital Signs - 24 hr 01/24/24 14:18 01/24/24 14:28 01/24/24 14:38 Temperature Pulse Rate 75 82 80 Respiratory Rate 17 18 15 Blood Pressure 110/66 124/85 128/80 Pulse Oximetry 99 98 100 Oxygen Delivery Simple Face Mask Room Air Room Air Oxygen Flow Rate 6 01/24/24 14:48 01/24/24 14:58 01/24/24 21:43 Temperature 98.5 F Pulse Rate 77 68 90 Respiratory Rate 25 H 16 16 Blood Pressure 138/91 H 132/79 131/74 Pulse Oximetry 100 100 97 Oxygen Delivery Room Air Room Air Oxygen Flow Rate 01/24/24 20:00 01/25/24 05:01 01/25/24 08:30 Temperature 97.9 F Pulse Rate 75 Respiratory Rate 16 Blood Pressure 130/77 Pulse Oximetry 100 Oxygen Delivery Room Air Room Air Oxygen Flow Rate Intake/Output Intake/Output: Intake & Output 01/22/24 01/23/24 01/24/24 01/25/24 23:59 23:59 23:59 23:59 Intake Total 2510 3885.0 1833.3 Output Total 3800 2600 Balance 2510 85.0 -766.7 Meds/Results Medications: Active Medications Generic Name Dose Route Start Last Admin Trade Name Freq PRN Reason Stop Dose Admin Hydromorphone HCl 0.5 mg 01/22/24 22:18 01/25/24 13:50 Hydromorphone Hcl Inj (*Crx) 1 Mg/Ml Syr IV PUSH 0.5 mg Q3H PRN Administration Pain Rated 7-10 Sodium Chloride 1,000 mls @ 100 mls/hr 01/22/24 22:20 01/25/24 05:52 Normal Saline Iv IV CONT 100 mls/hr .Q10H REHAN Administration Morphine Sulfate 4 mg 01/22/24 22:18 01/23/24 17:15 Morphine Sulfate (*Crx) 4 Mg/Ml Inj IV PUSH 4 mg Q2H PRN Administration Pain Rated 4-6 Ondansetron HCl 4 mg 01/22/24 22:18 Ondansetron Inj 4 Mg/2 Ml Vial IV PUSH Q4H PRN Nausea Pantoprazole Sodium 40 mg 01/23/24 09:00 01/25/24 08:34 Pantoprazole 40 Mg Tablet PO 40 mg DAILY REHAN Administration Phenol 1 spray 01/25/24 12:50 01/25/24 13:37 Phenol/Sod Pheno [place] Maria (*Bkc) MUCOUS MEM 1 spray PRN PRN Administration Sore Throat
--- NOTE | 2024-01-25 14:33 | PM.IMPN ---
Progress Note: A&P Assessment and Plan (1) Choledocholithiasis: Code(s): K80.50 - Calculus of bile duct without cholangitis or cholecystitis without obstruction Status: Acute Assessment and Plan: Patient with obstructive jaundice due to choledocholithiasis. LFTs elevated with TBili to 11 CT scan showing a 4mm stone in the CBD with mild biliary duct dilatation. GI consulted and ERCP today performed with removal of single stone in the distal CBD. No other filling defects. He appears to have tolerated the procedure well. Tolerating full liquid diet. Stop IVF Plan for lap choly per GenSurg tomorrow Follow labs to show improvement. (2) Obstructive jaundice: Code(s): K83.1 - Obstruction of bile duct Status: Acute Assessment and Plan: As above (3) Urine retention: Code(s): R33.9 - Retention of urine, unspecified Status: Acute Assessment and Plan: Patient noted to have evidence of urine retention by exam and by bladder scan No clinical hx of lower urine symptoms priro to admission Snell ordered but patient refused. He was able to void on his own Bladder feels less distended. Follow (4) HTN (hypertension), benign: Code(s): I10 - Essential (primary) hypertension Status: Chronic Assessment and Plan: Patient's blood pressure was reviewed on 01/24 Blood pressure remains well controlled. Will continue to hold lisinopril (5) GERD (gastroesophageal reflux disease): Code(s): K21.9 - Gastro-esophageal reflux disease without esophagitis Status: Acute Assessment and Plan: Stable. Continue PPI. Plan SCDs for DVT prophylaxis Code status - full Subjective Date/time seen: 01/25/24 14:33 Interval history: 53yo male with GERD, HTN and migraines here for abdominal pain.? No n/v. Tolerating full liquid diet but feels full and belching. Mild abd tenderness. no CP or SOB. Exam Narrative: AF 97.9 130/77 75 16 100% ra Gen - NARD Chest - CTA bilaterally. nml RR CV - RRR S1/S2 Abd - minimal tenderness in the epigastric pain Ext - no pedal edema Psych - normal mood and affect Skin - jaundiced Objective Data Vital Signs Vital Signs: Vital Signs - 24 hr 01/24/24 14:38 01/24/24 14:48 01/24/24 14:58 Temperature Pulse Rate 80 77 68 Respiratory Rate 15 25 H 16 Blood Pressure 128/80 138/91 H 132/79 Pulse Oximetry 100 100 100 Oxygen Delivery Room Air Room Air Room Air 01/24/24 21:43 01/24/24 20:00 01/25/24 05:01 Temperature 98.5 F 97.9 F Pulse Rate 90 75 Respiratory Rate 16 16 Blood Pressure 131/74 130/77 Pulse Oximetry 97 100 Oxygen Delivery Room Air 01/25/24 08:30 Temperature Pulse Rate Respiratory Rate Blood Pressure Pulse Oximetry Oxygen Delivery Room Air Intake/Output Intake/Output: Intake & Output 01/22/24 01/23/24 01/24/24 01/25/24 23:59 23:59 23:59 23:59 Intake Total 2510 3885.0 1833.3 Output Total 3800 2600 Balance 2510 85.0 -766.7 Meds/Results Medications: Active Medications Generic Name Dose Route Start Last Admin Trade Name Freq PRN Reason Stop Dose Admin Fentanyl Citrate 25 mcg 01/25/24 14:31 Fentanyl Citrate Inj (*Crx) 100 Mcg/2 Ml Vial IV PUSH Q2M PRN Pain Hydromorphone HCl 0.5 mg 01/22/24 22:18 01/25/24 13:50 Hydromorphone Hcl Inj (*Crx) 1 Mg/Ml Syr IV PUSH 0.5 mg Q3H PRN Administration Pain Rated 7-10 Sodium Chloride 1,000 mls @ 100 mls/hr 01/22/24 22:20 01/25/24 05:52 Normal Saline Iv IV CONT 100 mls/hr .Q10H REHAN Administration Lactated Ringer's 1,000 mls @ 30 mls/hr 01/25/24 14:35 Lr - Lactated Ringers Iv IV CONT .Q24H REHAN Lactated Ringer's 1,000 mls @ 30 mls/hr 01/25/24 14:35 Lr - Lactated Ringers Iv IV CONT .Q24H REHAN Morphine Sulfate 4 mg 01/22/24 22:18 01/23/24 17:15 Morphine Sulfate (*Crx) 4 Mg/Ml Inj IV PUSH 4 mg Q2H PRN Administration Pain R
--- NOTE | 2024-01-25 14:43 | PCCCNOTE ---
On 01/25/24, the student, Nayely Jama, provided care and completed [facility] documentation on this patient. I have reviewed the student's documentation and agree with the findings.
--- NOTE | 2024-01-25 16:49 | PM.PNGS ---
Progress Note: A&P Assessment and Plan (1) Chronic cholecystitis: Code(s): K81.1 - Chronic cholecystitis Status: Chronic Assessment and Plan: Stone removed with ERCP yesterday and jaundice, elevated liver function tests are improving. Patient still has recurrent episodes of postprandial right upper quadrant pain which is getting worse. He is to the point where he has pain with eating almost anything. I had talked with him yesterday and also talked again today and have recommended laparoscopic cholecystectomy. I went over this procedure in detail with the patient and his on the phone at the same time yesterday. We went over the procedure again today. His was present for the discussion. All questions were answered. We will plan to go ahead with laparoscopic cholecystectomy tomorrow afternoon. It is possible the patient could go home later in the day tomorrow but with the liver function tests and 2 procedures I think most likely he will stay again tomorrow night and possibly go home . (2) Choledocholithiasis: Code(s): K80.50 - Calculus of bile duct without cholangitis or cholecystitis without obstruction Status: Acute Assessment and Plan: Removed per ERCP with negative postprocedure cholangiogram. (3) Obstructive jaundice: Code(s): K83.1 - Obstruction of bile duct Status: Acute Assessment and Plan: Obstruction relieved, jaundice improving. Subjective Subjective Date/Time Seen: 01/25/24 11:39 Patient reports: no new complaints, feels better, tolerating liquids well and afebrile Interval history: Doing well after ERCP yesterday. Would like more to eat. Review of Systems Review of Systems: All systems reviewed & are unremarkable except as noted in HPI and below (HPI) Exam Const: General: comfortable and no acute distress Orientation/consciousness: patient oriented x3 GI: Inspection: normal to inspection, no abdominal wall ecchymosis, non-distended and no visible herniation GI Palp: Yes Soft to palpation, Yes Tenderness to palpation present (GI), No Guarding due to palpation present (GI), No Hernia present, No Palpable mass present and No Rebound tenderness present Auscultation: normal bowel sounds Neuro: General: patient oriented x3 and no focal motor deficits Extrem: General: no calf tenderness and no edema Psych: Affect: normal affect Insight: Good insight present (Psych) Judgement: Good judgement present (Psych) Objective Data Vital Signs Vital Signs: Vital Signs - 24 hr 01/24/24 21:43 01/24/24 20:00 01/25/24 05:01 Temperature 36.9 C 36.6 C Pulse Rate 90 75 Respiratory Rate 16 16 Blood Pressure 131/74 130/77 Pulse Oximetry 97 100 Oxygen Delivery Room Air 01/25/24 08:30 Temperature Pulse Rate Respiratory Rate Blood Pressure Pulse Oximetry Oxygen Delivery Room Air Intake/Output Intake/Output: Intake & Output 01/22/24 01/23/24 01/24/24 01/25/24 23:59 23:59 23:59 23:59 Intake Total 2510 3885.0 1833.3 Output Total 3800 2600 Balance 2510 85.0 -766.7 Meds/Results Medications: Active Medications Generic Name Dose Route Start Last Admin Trade Name Freq PRN Reason Stop Dose Admin Fentanyl Citrate 25 mcg 01/25/24 14:31 Fentanyl Citrate Inj (*Crx) 100 Mcg/2 Ml Vial IV PUSH Q2M PRN Pain Hydromorphone HCl 0.5 mg 01/22/24 22:18 01/25/24 13:50 Hydromorphone Hcl Inj (*Crx) 1 Mg/Ml Syr IV PUSH 0.5 mg Q3H PRN Administration Pain Rated 7-10 Lactated Ringer's 1,000 mls @ 30 mls/hr 01/25/24 14:35 Lr - Lactated Ringers Iv IV CONT .Q24H [facility] Lactated Ringer's 1,000 mls @ 30 mls/hr 01/25/24 14:35 Lr - Lactated Ringers Iv IV CONT .Q24H [facility] Morphine Sulfate 4 mg 01/22/24 22:18 01/23/24 17:15 Morphine Sulfate (*Crx) 4 Mg/Ml Inj IV PUSH 4 mg Q2H PRN Administration Pain Rated 4-6 Ondansetron HCl 4 mg 01/22/24 22:18 Ondansetron Inj
[2024-01-25 20:56] VITALS: BP 120/64; PULSE 80; RESP 18; TEMP 37.2; O2SAT 99
[2024-01-26] VITALS (11 sets, daily range): BP systolic 111–151; BP diastolic 59–82; PULSE 80–95; RESP 16–20; TEMP 36.3–37.3; O2SAT 94–100
[2024-01-26 05:25] LABS: Hematocrit 46.7 % (42.0-52.0); Hemoglobin 15.3 g/dL (14.0-18.0); Mean Corpuscular HGB Conc 32.8 g/dl (32-36); Mean Corpuscular Hemoglobin 30.2 pg (26-34); Mean Corpuscular Volume 92.3 fl (80-100); Mean Platelet Volume 9.5 fl (7.4-10.4); Platelet Count Result 248 k/mm3 (150-375); Red Blood Count 5.06 M/mm3 (4.6-6.20); White Blood Count 9.9 K/mm3 (4.5-10.0)
[2024-01-26 05:36] LABS: Alanine Aminotransferase 546 U/L (6-50); Albumin Level 4.2 g/dL (3.5-5.1); Alkaline Phosphatase 225 U/L (38-126); Anion Gap 7 mmol/L (4-12); Aspartate Amino Transferase 331 U/L (17-59); Bilirubin,Total 5.1 mg/dL (0.2-1.3); Blood Urea Nitrogen 9 mg/dL (9-20); Carbon Dioxide 24 mmol/L (22-30); Chloride 107 mmol/L (98-107); Estimated CRCL calculation 99 ml/min; Estimated Glomerular Filt Rate > 60; Glucose 102 mg/dL (65-110); Potassium 3.6 mmol/L (3.4-5.0); Sodium 138 mmol/L (137-145)
[2024-01-26 06:06] LABS: Lipase 9582 U/L (23-300)
--- NOTE | 2024-01-26 13:32 | PM.IMPN ---
Progress Note: A&P Assessment and Plan (1) Choledocholithiasis: Code(s): K80.50 - Calculus of bile duct without cholangitis or cholecystitis without obstruction Status: Acute Assessment and Plan: Patient with obstructive jaundice due to choledocholithiasis. LFTs elevated with TBili to 11 CT scan showing a 4mm stone in the CBD with mild biliary duct dilatation. GI consulted and ERCP today performed with removal of single stone in the distal CBD. No other filling defects. He appears to have tolerated the procedure well. Tolerating full liquid diet. Stop IVF Plan for lap jonathan today as per surgery team (2) Obstructive jaundice: Code(s): K83.1 - Obstruction of bile duct Status: Acute Assessment and Plan: As above (3) Urine retention: Code(s): R33.9 - Retention of urine, unspecified Status: Acute Assessment and Plan: Patient noted to have evidence of urine retention by exam and by bladder scan No clinical hx of lower urine symptoms priro to admission continue to watch in hospital (4) HTN (hypertension), benign: Code(s): I10 - Essential (primary) hypertension Status: Chronic Assessment and Plan: Patient's blood pressure was reviewed on 01/24 Blood pressure remains well controlled. Lisinopril on hold (5) GERD (gastroesophageal reflux disease): Code(s): K21.9 - Gastro-esophageal reflux disease without esophagitis Status: Acute Assessment and Plan: Stable. Continue PPI. Subjective Date/time seen: 01/26/24 13:32 Interval history: 53yo male with GERD, HTN and migraines here for abdominal pain.? Pt admitted for Gallstone and jaundice, pt had stone removed with ERCP pt still having pain Pt going for lap jonathan today under surgery team, Review of Systems Review of Systems: some RUQpains Exam Narrative: Gen - Middle aged pleasant man Chest - CTA bilaterally. nml RR CV - RRR S1/S2 Abd - minimal tenderness in the epigastric pain Ext - no pedal edema Psych - normal mood and affect Skin - jaundiced Objective Data Vital Signs Vital Signs: Vital Signs - 24 hr 01/25/24 20:56 01/26/24 06:11 01/26/24 09:15 Temperature 37.2 C 37.3 C Pulse Rate 80 82 Respiratory Rate 18 18 Blood Pressure 120/64 111/59 L Pulse Oximetry 99 96 Oxygen Delivery Room Air Intake/Output Intake/Output: Intake & Output 01/23/24 01/24/24 01/25/24 01/26/24 23:59 23:59 23:59 23:59 Intake Total 2510 3885.0 2623.3 150 Output Total 3800 3900 350 Balance 2510 85.0 -1276.7 -200 Meds/Results Medications: Active Medications Generic Name Dose Route Start Last Admin Trade Name Freq PRN Reason Stop Dose Admin Fentanyl Citrate 25 mcg 01/25/24 14:31 Fentanyl Citrate Inj (*Crx) 100 Mcg/2 Ml Vial IV PUSH Q2M PRN Pain Hydromorphone HCl 0.5 mg 01/22/24 22:18 01/25/24 22:43 Hydromorphone Hcl Inj (*Crx) 1 Mg/Ml Syr IV PUSH 0.5 mg Q3H PRN Administration Pain Rated 7-10 Lactated Ringer's 1,000 mls @ 30 mls/hr 01/25/24 14:35 Lr - Lactated Ringers Iv IV CONT .Q24H [facility] Lactated Ringer's 1,000 mls @ 30 mls/hr 01/25/24 14:35 Lr - Lactated Ringers Iv IV CONT .Q24H [facility] Morphine Sulfate 4 mg 01/22/24 22:18 01/23/24 17:15 Morphine Sulfate (*Crx) 4 Mg/Ml Inj IV PUSH 4 mg Q2H PRN Administration Pain Rated 4-6 Ondansetron HCl 4 mg 01/22/24 22:18 Ondansetron Inj 4 Mg/2 Ml Vial IV PUSH Q4H PRN Nausea Ondansetron HCl 4 mg 01/25/24 14:31 Ondansetron Inj 4 Mg/2 Ml Vial IV PUSH ONCE PRN Nausea Pantoprazole Sodium 40 mg 01/23/24 09:00 01/26/24 07:20 Pantoprazole 40 Mg Tablet PO Not Given DAILY [facility] Phenol 1 spray 01/25/24 12:50 01/25/24 13:37 Phenol/Sod Pheno [place] (*[facility]) MUCOUS MEM 1 spray PRN PRN Administration Sore Throat Radiology Results: ITS Impressions [place]
[2024-01-26] MEDS: LACTATED RINGERS 1,000 ML 30 ML IV CONT ×2 (14:30→17:10)
--- NOTE | 2024-01-26 14:51 | WPDANESEPPF ---
Anes - Initial Pre Proc Eval Procedure: Operation Date: 01/24/24 16:00 Proposed Procedures p Endoscopic Retro Cholangiopancreatogram - Baldo Morales MD Operation Date: 01/26/24 15:00 Proposed Procedures p Laparoscopic Cholecystectomy - Mo Gonzalez MD Date/Time: 01/26/24 14:51 Surgeon: Aliya Cabral DO Pre Op Diagnosis: Choledocholithiasis,Obstructive Jaundice Patient Data Age: 53 Gender: M Height: 1.8 m Weight: 99.6 kg Last Vital Signs Temp 99.2 F 01/26/24 06:11 Pulse 82 01/26/24 06:11 Resp 18 01/26/24 06:11 BP 111/59 L 01/26/24 06:11 Pulse Ox 96 01/26/24 06:11 O2 Del Method Room Air 01/26/24 09:15 O2 Flow Rate 6 01/24/24 14:18 Allergies Allergy/AdvReac Type Severity Reaction Status Date / Time No Known Allergies Allergy Verified 01/26/24 14:39 Home Medications Medication Instructions Recorded Confirmed Type cyclobenzaprine 10 mg tablet 10 mg PO PRN PRN muscle spasms 01/22/24 01/22/24 History lisinopril 5 mg tablet 5 mg PO DAILY 01/22/24 01/22/24 History pantoprazole 40 mg tablet,delayed 40 mg PO DAILY 01/22/24 01/22/24 History release topiramate 50 mg tablet 50 mg PO BID PRN Headache 01/22/24 01/22/24 History Laboratory Tests 01/26/24 05:09 WBC 9.9 K/mm3 (4.5-10.0) RBC 5.06 M/mm3 (4.6-6.20) Hgb 15.3 g/dL (14.0-18.0) Hct 46.7 % (42.0-52.0) MCV 92.3 fl (80-100) MCH 30.2 pg (26-34) MCHC 32.8 g/dl (32-36) RDW 13.0 % (11.5-14.5) Plt Count 248 k/mm3 (150-375) MPV 9.5 fl (7.4-10.4) Sodium 138 mmol/L (137-145) Potassium 3.6 mmol/L (3.4-5.0) Chloride 107 mmol/L (98-107) Carbon Dioxide 24 mmol/L (22-30) Anion Gap 7 L mmol/L (4-12) BUN 9 mg/dL (9-20) Creatinine 0.90 mg/dL (0.7-1.3) Estim Creat Clear Calc 99 ml/min Estimated GFR > 60 (59 - ) Glucose 102 mg/dL (65-110) Calcium 9.0 mg/dL (8.4-10.2) Total Bilirubin 5.1 H mg/dL (0.2-1.3) AST 331 H U/L (17-59) ALT 546 H U/L (6-50) Alkaline Phosphatase 225 H U/L (38-126) Total Protein 8.0 g/dL (6.3-8.2) Albumin 4.2 g/dL (3.5-5.1) Lipase 9582 H U/L (23-300) Patient hx anesthesia problems: none Family hx anesthesia problems: none Results Review: All pre-operative results and documents have been reviewed as part of the pre-operative evaluation. [facility] Past Medical History Medical History (Updated 01/25/24 @ 16:52 by Mo Gonzalez MD) Eczema GERD (gastroesophageal reflux disease) History of esophageal stricture HTN (hypertension), benign Migraine Nausea and vomiting in adult Upper abdominal pain Surgical History Surgical History No history of previous surgery Family History Family History Father Heart disease Hypertension Mother Heart disease Hypertension Diabetes mellitus Social History Social History Social History: Lifelong nonsmoker. Drinks 1 alcoholic drink per month. No drug use. No history of drug use. Lives at home with his , 5 children. Does have birds and fish at home. Full code. He nominates his to be the individual who would make medical decisions for him if he is unable. Smoking status: Never smoker Alcohol intake: never Substance use: never Do You Feel Safe in your Home?: Yes Lack of Transportation: No Lack of Food: Never True Current Housing: I Have Housing Concerned About Future Housing: No Difficulty Paying Gas/Electric Bills: Decline to Answer Difficulty Paying for Meds: No Currently Unemployed: No Education: High School Diploma/GED Difficulty w/ Childcare or Family Care: No Spiritual care concerns: No Anes - Eval Final PreProcedure Day of Procedure 01/26/24 14:51 [place]
--- NOTE | 2024-01-26 15:11 | WPDHPUPDATE1 ---
History and Physical Update Update Date/Time: 01/26/24 15:11 History and Physical has been reviewed, including an updated exam of the patient. There are NO changes in the patient's condition. Risks, benefits, and alternatives have been discussed and questions answered. Patient agrees to proceed with procedure.
[2024-01-26] MEDS: ceFAZolin 2 GM/D5W 50 ML 2 GM/50 ML BAG IVPB (15:18)
[2024-01-26] MEDS: BUPIVACAINE/EPINEPHRINE 0.5% 50 ML VIAL 30 ML INFILTRATE (15:41)
--- NOTE | 2024-01-26 17:13 | W.PM.PROC2 ---
Procedure Note - Detailed Date of Procedure 01/26/24 Pre-op Diagnosis Choledocholithiasis,Obstructive Jaundice, chronic cholecystitis Post-op Diagnosis Same Procedure Performed Laparoscopic cholecystectomy Surgeon Mo Gonzalez MD Airbrush Artist Technical [facility] Anesthesia General and Local Indications Patient is a 53-year-old man who has been troubled with postprandial right upper quadrant abdominal pain for almost a year. He was evaluated last August and no stones were noted on ultrasound and is HIDA scan was normal. He continued to have problems presented to [facility] Emergency Room with pain and jaundice. Imaging showed a stone in the common bile duct. Again no stones were noted in the gallbladder on CT scan or ultrasound. His symptoms are very consistent with recurrent chronic cholecystitis. He had an ERCP 2 days ago. Stone was removed and sphincterotomy was performed. Patient's bilirubin and liver function tests are improving. He is taken to surgery now for laparoscopic cholecystectomy. Findings Severe chronic inflammation was noted. There were many adhesions to the undersurface the liver making it difficult to retract the gallbladder. The gallbladder itself at a thickened wall was both chronically and acutely inflamed. The cystic duct was large and in fact it was too large to occlude with a clip. I had to tie off the cystic duct stump with an endoloop. Common bile duct did appear to be dilated. Outside of the adhesions, the liver did not appear to be otherwise abnormal. Description of Procedure Patient was taken to surgery and induced into general anesthesia. The abdomen is prepped and draped. Trocars were placed in usual fashion using Evercam optical trocars and a 5 mm camera. Once the trocars were in place and we had adequate insufflation, the gallbladder was decompressed with a laparoscopic aspirator. It had a very thickened wall and only a small amount of thickened bile could be removed. We used a Vicryl endoloop to close the cholecystotomy. The gallbladder was then freed from some surrounding adhesions and retracted anterosuperiorly. Unfortunately there were many adhesions both laterally and medially to to the gallbladder on the undersurface of the liver which precluded much in the way of gallbladder retraction. We continued to take down adhesions and eventually came to the infundibulum of the gallbladder. With traction on the infundibulum, slow, difficult dissection was carried out in the cholecystohepatic triangle. The adhesions were quite dense and there was oozing of blood throughout. Tissue planes were obscured. Eventually, the cystic duct was dissected clearly. The cystic artery was also dissected clearly. I dissected at least the lower 3rd of the gallbladder from the liver. Critical view was achieved. I clipped the cystic artery and divided it. The cystic duct was too large to clip. I divided it near the gallbladder and then used a Vicryl endoloop to ligate the stump of the cystic duct near the common bile duct. I then irrigated and suctioned the right upper quadrant. Some cautery was used to improve hemostasis. We then continued the dissection of the gallbladder from its remaining attachments to the liver. The gallbladder was partially intrahepatic near the fundus. Eventually the gallbladder was completely dissected free. It was placed in Endo-Catch bag and was able to be retrieved from the 10/11 epigastric trocar site. I did have to enlarge the trocar site to accommodate the gallbladder with its very thickened wall. Once the gallbladder was removed, I replaced the 10 11 trocar. We exposed the gallbladder fossa. Irrigation suction and cautery were then used to achieve hemostasis over the gallbladder fossa. The area was irrigated and suctioned repeatedly. I was satisfied that hemostasis was achieved. There was no evidence of bile leakage either. The tie on the cystic duct looked quite secure. We
[2024-01-26] MEDS: fentaNYL CITRATE INJ (*CRX) 100 MCG/2 ML VIAL 25 MCG IV PUSH ×2 (18:01→18:06)
--- NOTE | 2024-01-26 18:15 | PC.NURSE ---
Patient returned to floor via bed from PACU.
--- NOTE | 2024-01-26 18:27 | WPDGIPROGNO ---
Progress Note: A&P Assessment and Plan (1) Choledocholithiasis: Code(s): K80.50 - Calculus of bile duct without cholangitis or cholecystitis without obstruction Status: Acute Assessment and Plan: treated with ercp and removed stone bili is trending down left PD stent- get KUB in 3 weeks and if stent still in position then will schedule EGD to remove (2) Obstructive jaundice: Code(s): K83.1 - Obstruction of bile duct Status: Acute Assessment and Plan: treated with ercp he just had lap jonathan diet per surgery team (3) Chronic cholecystitis: Code(s): K81.1 - Chronic cholecystitis Status: Chronic Assessment and Plan: s/p lap jonathan, found significant inflammation (4) Upper abdominal pain: Code(s): R10.10 - Upper abdominal pain, unspecified Status: Inactive Subjective Date/time seen: 01/26/24 18:27 Interval history: he just had lap jonathan, found significant inflammation and adhesions, normal liver Review of Systems Review of Systems: All systems reviewed & are unremarkable except as noted in HPI and below Exam Const: General: comfortable and no acute distress HENMT: Face/Nose/Sinus: Normal nares present Eyes: General: appearance normal, both eyes and all related structures Neck: Neck: supple Resp: Auscultation: clear to auscultation bilaterally Cardio: Rate: regular rate Rhythm: regular rhythm GI: Inspection: non-distended GI Palp: Yes Soft to palpation and Yes Tenderness to palpation present (GI) (expected tenderness, just had lap jonathan) Auscultation: normal bowel sounds Skin: General skin exam: normal color Neuro: Speech: normal speech Motor exam (neuro): 5/5 motor strength present throughout Extrem: General: normal to inspection Psych: Mental Status: mental status grossly normal Objective Data Vital Signs Vital Signs: Vital Signs - 24 hr 01/25/24 20:56 01/26/24 06:11 01/26/24 09:15 Temperature 99 F 99.2 F Pulse Rate 80 82 Respiratory Rate 18 18 Blood Pressure 120/64 111/59 L Pulse Oximetry 99 96 Oxygen Delivery Room Air Oxygen Flow Rate 01/26/24 15:03 01/26/24 17:10 01/26/24 17:25 Temperature 97.9 F 97.5 F L Pulse Rate 84 93 84 Respiratory Rate 16 18 18 Blood Pressure 141/74 H 134/78 140/76 Pulse Oximetry 100 100 100 Oxygen Delivery Room Air Simple Face Mask Simple Face Mask Oxygen Flow Rate 6 6 01/26/24 17:40 01/26/24 17:55 Temperature Pulse Rate 91 84 Respiratory Rate 19 16 Blood Pressure 143/79 H 141/78 H Pulse Oximetry 100 95 Oxygen Delivery Simple Face Mask Room Air Oxygen Flow Rate 6 Intake/Output Intake/Output: Intake & Output 01/23/24 01/24/24 01/25/24 01/26/24 23:59 23:59 23:59 23:59 Intake Total 2510 3885.0 2623.3 650 Output Total 3800 3900 700 Balance 2510 85.0 -1276.7 -50 Meds/Results Medications: Active Medications Generic Name Dose Route Start Last Admin Trade Name Freq PRN Reason Stop Dose Admin Acetaminophen 500 mg 01/26/24 18:11 Acetaminophen 500 Mg Tablet PO Q6H PRN Mild Pain (1-3) or Fever Enoxaparin Sodium 40 mg 01/27/24 09:00 Enoxaparin 40 Mg/0.4 Ml Syringe SUB-Q DAILY [facility] Hydromorphone HCl 1 mg 01/26/24 18:11 Hydromorphone Hcl Inj (*Crx) 1 Mg/Ml Syr IV PUSH Q2H PRN Pain Rated 7-10 Hydromorphone HCl 0.5 mg 01/26/24 18:11 Hydromorphone Hcl Inj (*Crx) 1 Mg/Ml Syr IV PUSH Q2H PRN Pain Rated 4-6 Lactated Ringer's 1,000 mls @ 100 mls/hr 01/26/24 18:11 Lr - Lactated Ringers Iv IV CONT .Q10H [facility] Ibuprofen 800 mg in 200 mls @ 400 mls/hr 01/26/24 18:11 Caldolor 800 Mg/200 Ml IVPB Q6H PRN Pain Rated 1-3 Lisinopril 5 mg 01/27/24 09:00 Lisinopril 5 Mg Tablet PO DAILY [facility] Naloxone HCl 0.1 mg 01/26/24 18:11 Naloxone Hcl 0.4 Mg/Ml Vial IV PUSH Q2M PRN Opiate Reversal Ondansetron HCl 4 mg 01/22/24 22:18 Ondansetron Inj 4 Mg/
[2024-01-26] MEDS: LACTATED RINGERS 1,000 ML 100 ML IV CONT (18:44)
[2024-01-26] MEDS: ACETAMINOPHEN 500 MG TABLET PO (20:26)
[2024-01-27] MEDS: HYDROmorphone HCL INJ (*CRX) 1 MG/ML SYR IV PUSH (01:57)
[2024-01-27 03:56] VITALS: BP 135/73; PULSE 88; RESP 20; TEMP 36.4; O2SAT 98
[2024-01-27] MEDS: LACTATED RINGERS 1,000 ML 100 ML IV CONT (04:18)
[2024-01-27 05:22] LABS: Hematocrit 41.9 % (42.0-52.0); Hemoglobin 13.8 g/dL (14.0-18.0); Mean Corpuscular HGB Conc 32.9 g/dl (32-36); Mean Corpuscular Volume 91.1 fl (80-100); Mean Platelet Volume 9.7 fl (7.4-10.4); Platelet Count Result 218 k/mm3 (150-375); Red Cell Distribution Width 12.5 % (11.5-14.5); White Blood Count 11.8 K/mm3 (4.5-10.0)
[2024-01-27 05:36] LABS: Alanine Aminotransferase 582 U/L (6-50); Albumin Level 3.9 g/dL (3.5-5.1); Alkaline Phosphatase 184 U/L (38-126); Anion Gap 7 mmol/L (4-12); Aspartate Amino Transferase 382 U/L (17-59); Bilirubin,Total 3.5 mg/dL (0.2-1.3); Blood Urea Nitrogen 10 mg/dL (9-20); Calcium 9.1 mg/dL (8.4-10.2); Carbon Dioxide 25 mmol/L (22-30); Chloride 103 mmol/L (98-107); Estimated CRCL calculation 99 ml/min; Estimated Glomerular Filt Rate > 60; Glucose 124 mg/dL (65-110); Lipase 754 U/L (23-300); Potassium 4.3 mmol/L (3.4-5.0); Sodium 135 mmol/L (137-145)
--- NOTE | 2024-01-27 08:03 | PM.PNGS ---
Progress Note: A&P Assessment and Plan (1) Chronic cholecystitis: Code(s): K81.1 - Chronic cholecystitis Status: Chronic Assessment and Plan: Doing well after laparoscopic cholecystectomy. Advance to low-fat diet. Okay from surgical standpoint to discharge patient today. He will need to see me in [address] Booth in 3 weeks as he still has a stent in the pancreatic duct. Discharge orders placed. (2) Choledocholithiasis: Code(s): K80.50 - Calculus of bile duct without cholangitis or cholecystitis without obstruction Status: Acute Assessment and Plan: Status post ERCP with sphincterotomy, pancreatic duct stent, stone removal. (3) Obstructive jaundice: Code(s): K83.1 - Obstruction of bile duct Status: Acute Assessment and Plan: Improving Subjective Subjective Date/Time Seen: 01/27/24 08:03 Post Op day: 1 Patient reports: pain is less, tolerating liquids well, no bowel movement and afebrile Exam Const: General: cooperative, comfortable, alert and awake GI: Inspection: non-distended, incision (Look good) and scaphoid GI Palp: Yes Soft to palpation and Yes Tenderness to palpation present (GI) (Mild appropriate tenderness) Objective Data Vital Signs Vital Signs: Vital Signs - 24 hr 01/26/24 09:15 01/26/24 15:03 01/26/24 17:10 Temperature 36.6 C 36.4 C L Pulse Rate 84 93 Respiratory Rate 16 18 Blood Pressure 141/74 H 134/78 Pulse Oximetry 100 100 Oxygen Delivery Room Air Room Air Simple Face Mask Oxygen Flow Rate 6 01/26/24 17:25 01/26/24 17:40 01/26/24 17:55 Temperature Pulse Rate 84 91 84 Respiratory Rate 18 19 16 Blood Pressure 140/76 143/79 H 141/78 H Pulse Oximetry 100 100 95 Oxygen Delivery Simple Face Mask Simple Face Mask Room Air Oxygen Flow Rate 6 6 01/26/24 18:30 01/26/24 18:45 01/26/24 20:15 Temperature 36.5 C 36.3 C L Pulse Rate 82 80 Respiratory Rate 20 20 Blood Pressure 130/66 151/81 H Pulse Oximetry 94 94 Oxygen Delivery Room Air Oxygen Flow Rate 01/26/24 18:56 01/26/24 19:56 01/26/24 22:27 Temperature 36.3 C L 36.4 C L 36.6 C Pulse Rate 80 86 95 Respiratory Rate 20 20 20 Blood Pressure 142/80 H 138/78 149/82 H Pulse Oximetry 99 100 100 Oxygen Delivery Oxygen Flow Rate 01/27/24 03:56 Temperature 36.4 C L Pulse Rate 88 Respiratory Rate 20 Blood Pressure 135/73 Pulse Oximetry 98 Oxygen Delivery Oxygen Flow Rate Intake/Output Intake/Output: Intake & Output 01/24/24 01/25/24 01/26/24 01/27/24 23:59 23:59 23:59 23:59 Intake Total 3885.0 2623.3 650 956.7 Output Total 3800 3900 1900 1600 Balance 85.0 -1276.7 -1250 -643.3 Meds/Results Medications: Active Medications Generic Name Dose Route Start Last Admin Trade Name Freq PRN Reason Stop Dose Admin Acetaminophen 500 mg 01/26/24 18:11 01/26/24 20:26 Acetaminophen 500 Mg Tablet PO 500 mg Q6H PRN Administration Mild Pain (1-3) or Fever Enoxaparin Sodium 40 mg 01/27/24 09:00 Enoxaparin 40 Mg/0.4 Ml Syringe SUB-Q DAILY [facility] Hydromorphone HCl 1 mg 01/26/24 18:11 01/27/24 01:57 Hydromorphone Hcl Inj (*Crx) 1 Mg/Ml Syr IV PUSH 1 mg Q2H PRN Administration Pain Rated 7-10 Hydromorphone HCl 0.5 mg 01/26/24 18:11 Hydromorphone Hcl Inj (*Crx) 1 Mg/Ml Syr IV PUSH Q2H PRN Pain Rated 4-6 Lactated Ringer's 1,000 mls @ 100 mls/hr 01/26/24 18:11 01/27/24 04:18 Lr - Lactated Ringers Iv IV CONT 100 mls/hr .Q10H [facility] Administration Ibuprofen 800 mg in 200 mls @ 400 mls/hr 01/26/24 18:11 Caldolor 800 Mg/200 Ml IVPB Q6H PRN Pain Rated 1-3 Lisinopril 5 mg 01/27/24 09:00 Lisinopril 5 Mg Tablet PO DAILY [facility] Naloxone HCl 0.1 mg 01/26/24 18:11 Naloxone Hcl 0.4 Mg/Ml Vial IV PUSH Q2M PRN Opiate Reversal Ondansetron HCl 4 mg 01/22/24 22:18 Ondansetron Inj 4 Mg/2 Ml Vial IV PUSH Q4H PRN Nausea
[2024-01-27] MEDS: oxyCODONE/ACETAMINOPHEN (*CRX) 5-325 MG TABLET 1 TABLET PO (08:20)
[2024-01-27] MEDS: PANTOPRAZOLE 40 MG TABLET PO (08:21)
[2024-01-27] MEDS: lisinopriL 5 MG TABLET PO (08:22)
[2024-01-27] MEDS: ENOXAPARIN 40 MG/0.4 ML SYRINGE SUB-Q (08:22)
[2024-01-27 08:35] VITALS: BP 141/83; PULSE 79; RESP 20; TEMP 36.4; O2SAT 99
--- NOTE | 2024-01-27 08:36 | WPDANESPN ---
Anes - Prog Note Post-Op Date/Time: 01/27/24 08:36 Cardiovascular status: normal Respiratory status: normal Airway patency: baseline Mental status: baseline Post-Op hydration status: normal Vital Signs: Last Vital Signs Temp 36.4 C L 01/27/24 03:56 Pulse 88 01/27/24 03:56 Resp 20 01/27/24 03:56 BP 135/73 01/27/24 03:56 Pulse Ox 98 01/27/24 03:56 O2 Del Method Room Air 01/26/24 20:15 O2 Flow Rate 6 01/26/24 17:40 Pain Score (VAS): 0 I/O: Intake & Output 01/26/24 01/27/24 01/27/24 23:59 07:59 15:59 Intake Total 450 956.7 Output Total 1550 1600 Balance -1100 -643.3 Laboratory Tests 01/27/24 05:08 01/27/24 05:08 01/27/24 05:08 WBC 11.8 H RBC 4.60 Hgb 13.8 L Hct 41.9 L MCV 91.1 MCH 30.0 MCHC 32.9 RDW 12.5 Plt Count 218 MPV 9.7 Sodium 135 L Potassium 4.3 Chloride 103 Carbon Dioxide 25 Anion Gap 7 BUN 10 Creatinine 0.90 Estim Creat Clear Calc 99 Estimated GFR > 60 Glucose 124 H Calcium 9.1 Total Bilirubin 3.5 H AST 382 H ALT 582 H Alkaline Phosphatase 184 H Total Protein 7.0 Albumin 3.9 Lipase 754 H Post-procedural complaints: none Patient Feedback: Patient satisfied with anesthetic care.
--- NOTE | 2024-01-27 11:26 | PC.NURSE ---
On 01/27/24, the student, [Sosa Concepcion], provided care and completed [facility] documentation on this patient. I have reviewed the student's documentation and agree with the findings.
[2024-01-27] MEDS: ACETAMINOPHEN 500 MG TABLET PO (11:45)
[2024-01-27 11:56] VITALS: BP 124/67; PULSE 88; RESP 18; TEMP 36.9; O2SAT 100
--- NOTE | 2024-01-27 12:17 | PM.DS ---
DS: Admitting Diagnosis Discharge Date 01/27/2024 Admitting Diagnosis Abdominal pain DS: Discharge Diagnosis Discharge Diagnosis (1) Choledocholithiasis: Code(s): K80.50 - Calculus of bile duct without cholangitis or cholecystitis without obstruction Status: Acute Assessment and Plan: Patient with obstructive jaundice due to choledocholithiasis. LFTs elevated with TBili to 11 CT scan showing a 4mm stone in the CBD with mild biliary duct dilatation. GI consulted and ERCP today performed with removal of single stone in the distal CBD. No other filling defects. He appears to have tolerated the procedure well. Tolerating full liquid diet. Stop IVF Sp lap jonathan yesterday doing well tolerating diet ok to dc today as per surgery team (2) Obstructive jaundice: Code(s): K83.1 - Obstruction of bile duct Status: Acute Assessment and Plan: As above (3) Urine retention: Code(s): R33.9 - Retention of urine, unspecified Status: Acute Assessment and Plan: Improved in hospital (4) HTN (hypertension), benign: Code(s): I10 - Essential (primary) hypertension Status: Chronic Assessment and Plan: Patient's blood pressure was reviewed on 01/24 Blood pressure remains well controlled. can restart lisinopril on dc (5) GERD (gastroesophageal reflux disease): Code(s): K21.9 - Gastro-esophageal reflux disease without esophagitis Status: Acute Assessment and Plan: Stable. Continue PPI. DS: Summary Hospital Course Hospital Course: 53yo male with GERD, HTN and migraines here for abdominal pain.? Pt admitted for Gallstone and jaundice, pt had stone removed with ERCP pt still having pain Pt going for lap jonathan today under surgery team sp lap jonathan doing well ok to dc today Time Spent with Patient Time attestation: Total time spent providing and/or coordinating discharge services:50 minutes on day of dc Exam Narrative: Gen - Middle aged pleasant man Chest - CTA bilaterally. nml RR CV - RRR S1/S2 Abd - minimal tenderness in the epigastric pain Ext - no pedal edema Psych - normal mood and affect Skin - jaundiced DS: Data Data Completed and Pending Pending studies at discharge: Pending at discharge 01/26/24 15:38 Surgical [PTH] Routine Labs on day of discharge: Labs from last 24 hours 01/27/24 05:08 WBC 11.8 H RBC 4.60 Hgb 13.8 L Hct 41.9 L MCV 91.1 MCH 30.0 MCHC 32.9 RDW 12.5 Plt Count 218 MPV 9.7 Sodium 135 L Potassium 4.3 Chloride 103 Carbon Dioxide 25 Anion Gap 7 BUN 10 Creatinine 0.90 Estim Creat Clear Calc 99 Estimated GFR > 60 Glucose 124 H Calcium 9.1 Total Bilirubin 3.5 H AST 382 H ALT 582 H Alkaline Phosphatase 184 H Total Protein 7.0 Albumin 3.9 Lipase 754 H Discharge Plan Discharge Attending physician on discharge: Louann Donis Consulting providers: Tamica Kraus; Mo Gonzalez; Baldo Morales Discharging Clinician: Louann Donis Anticipated Discharge Date/Time: 01/27/24 12:16 Patient Disposition: Home, Self-Care Activity: may shower, no straining and as tolerated Diet: low fat Wound Care Instructions: incision open to air Discharge Instructions: 1. May shower, or bathe, wash over incisions with soap and water. 2. Call office for: -Wound increasingly painful or bleeding -Vomiting -Fever of greater than 101 degrees 3. Low-fat diet-particularly avoid greasy and fatty foods.. 4. If no bowel movement for three days, take 1 oz. (30 ml) Milk of Magnesia, if no results, take Fleets enema. 5. No heavy lifting > 15-20 pounds for 2 weeks. 6. No driving for 3 days or while taking narcotic pain medications. 7. Up walking 10-30 minutes three times per day. 8. Resume previous home medications. 9.
== END 2024-01-27 12:50 | disposition home or self-care (01) | DRG 418 ==
LOC: ANHED 21:19 → ANH2MED 22:39
PROVIDERS: Internal Medicine; Internal Medicine Gastroenterology; Surgery; Admitting Provider Internal Medicine; Emergency Provider Physician Assistant; PCP Physician Assistant; Visit Provider Family Medicine
PROC: 0F7D8DZ Dilation of Pancreatic Duct with Intraluminal Device, Via Natural or Artificial Opening Endoscopic (ICD-10-PCS; CPT 43260; principal; 2024-01-24 16:00)
PROC: 0FT44ZZ Resection of Gallbladder, Percutaneous Endoscopic Approach (ICD-10-PCS; CPT 47562; principal; 2024-01-26 15:00)
DX: K80.45 Calculus of bile duct with chronic cholecystitis with obstruction (principal); R17 Unspecified jaundice; R33.9 Retention of urine, unspecified; I10 Essential (primary) hypertension; K21.9 Gastro-esophageal reflux disease without esophagitis; E66.9 Obesity, unspecified; Z68.30 Body mass index [BMI] 30.0-30.9, adult
CPT/HCPCS: 36415; 74177; 74329; 76705; 80053; 80074; 81003; 83605; 83690; 84484; 85025; 85027; 88304; 93005; 96374; 96375; 99285; A9270; C2625; G0378; J0330; J0690; J1100; J1170; J1650; J2001; J2250; J2270; J2405; J2704; J3010; J7030; J7120; Q9966; Q9967